=== PATIENT | female | born 1975 | race Caucasian/White ===

== ENCOUNTER 2025-09-05 07:13 | Outpatient (REF) | payer OTHER, SELFPAY ==
--- NOTE | ~2025-09-05 | MR_ITS ---
EXAMINATION: MR CERVICAL SPINE WITHOUT CONTRAST CLINICAL INFORMATION: Cervical disc disorder. COMPARISON: Correlated to x-ray dated November 23, 2018. TECHNIQUE: MRI of the cervical spine was obtained using routine sequences without contrast. FINDINGS: Paramagnetic field distortion secondary to metallic hardware from C4 to C6. Craniocervical junction is intact. Normal position of the cerebellar tonsils. No bone marrow STIR signal abnormality. Marginal osteophyte formation decreased intervertebral disc height and signal at C3-4 and C6-7 levels as well as in the upper thoracic spine. 1 mm retrolisthesis C3-4. 1 mm anterolisthesis C7-T1. Reverse curvature apex at C3-4. Cervical spinal cord signal is normal. C2-3: Broad-based disc osteophyte consummation resulting in ventral deformity of the thecal sac. No cord compression. Left neuroforamina and narrowing on a degenerative basis. C3-4: Broad-based disc osteophyte compresses formation, grade 1 retrolisthesis resulting in CSF effacement of the thecal sac central spinal canal stenosis and flattening of the spinal cord. Bilateral neuroforamina stenosis. C4-5: Postsurgical changes. No cord compression. No neuroforamina stenosis. C5-6: Postsurgical changes. No cord compression. No neuroforamina stenosis. C6-7: Broad-based disc osteophyte compresses formation resulting in ventral deformity of the thecal sac. There is bilateral neuroforamina stenosis. C7-T1: No central spinal canal stenosis or neuroforamina stenosis. No prevertebral compartment hematoma, mass or fluid collection. Flow-void signal within the main vessels is normal. Left vertebral artery is dominant. MR/MR cervical spine wo con IMPRESSION: Cervical spondylosis resulting in central spinal canal stenosis with cord compression and no cord edema and or myelopathy at C3-4 and associated neuroforamina stenosis. Central spinal canal and bilateral neuroforamina stenosis without cord compression at C6-7 on a degenerative basis. Grade 1 retrolisthesis C3-4 and grade 1 anterolisthesis C7-T1. Instability cannot be excluded. Electronically signed by: Juan Pablo Zamorano MD 09/05/2025 08:27 AM [facility] [place]
--- OUTSIDE RECORDS SUMMARY | 2025-09-05 15:03 | XMS_ITS | Data Portability ---
Author Organization [facility], Main Office Address [address] [place] [address] Care Team Providers Care Coordinator Of Health Services Name Role Phone [facility] Gynecolo gist MORENA NOLAND Neurosurgeon LAKESHIA GARCIA Orthopedic Surgeon HOLLISPARMINDER LOCKWOOD Orthopedic Surgeon BRANDON WORTHY Calciner Fe[facility] Phys. [facility] Rehab MARY SOUZA Orthopedic Surgeon [phone] ITZEL ESTRADA Urogynecologist [facility] Sleep Medicine KAYE ZIMMERMAN Primary Care Provider LAKESHIA BANKS Orthopedic Surgeon Assessment Encounter Date Assessment Date Assessment LastModified by Organization Details LastModified Time 10/30/2024 10/30/2024 The patient is a n adult over 18 years old with a BMI greater than 30 kg/m^2. She has a medical history that includes hypertension, hyperlipidemia, RALF, prediabetes first degree fhx of heart disease and OR. Despite engaging in a structured program of behavioral modification, adhering to a low-calorie diet, and exercising the best she can given her knees , She has not achieved any weight loss. After discussing medication augmentation, the patient has opted to use Zepbound, following approval from her insurance. He will continue with lifestyle modifications, including dietary restrictions and regular exercise, alongside this medication. The initial dosage will adhere to the recommended guidelines, and we plan to adjust the dose monthly. He agrees not to use any other weight loss medications or those with similar mechanisms of action concurrently. We have discussed the potential side effects of Zepbound, including nausea, constipation, aspiration, ophthalmologic changes, and the rare risk of bowel obstruction. The patient has been informed of the signs and symptoms of bowel obstruction, including severe abdominal pain, persistent nausea/vomiting, and has been advised to seek immediate medical attention if these occur. Additionally, we discussed the importance of monitoring for any sudden changes in vision and reporting these promptly. The patient has no history of thyroid cancer, gallbladder disease, or pancreatitis. He has been instructed to feel his neck for lumps and bumps regularly. Thankfully she had her gallbladder removed so this is less of a concern. We reviewed the risks, benefits, and alternatives to treatment, including continuing lifestyle management without medication or exploring other pharmacological options. The patient expressed understanding of these options and chose to proceed with Zepbound. Instructions were provided on proper injection techniques, including alternating injection sites, cleaning the area before injecting, and pinching the skin during injection. Educational materials were provided to support his understanding of the medication and its administration. The patient is required to report how he feels every two weeks via messaging, which will facilitate necessary adjustments to his prescription. A one-time prior authorization for Zepbound will be pursued, and no switch to a different GLP-1 receptor agonist or [id number] appeals will be made if denied. He is also responsible for locating a pharmacy that stocks the medication and understands the titration process, which involves increasing doses sequentially. If the required dose is unavailable, we will maintain the current dose or adjust to a lower dose until the desired dose becomes available. He will conduct weekly weight checks, and I plan to monitor his renal function once the maximum dose is reached due to potential renal side effects. Both AMILCAR and PHQ assessments have been completed. Follow-up appointments will be scheduled and the weight loss contract has been completed and signed. The patient has verbally acknowledged understanding of the risks, benefits, and alternatives to treatment and agreed to proceed with the plan. He understands his responsibilities in monitoring and reporting any adverse effects, as well as adhering to the prescribed lifestyle modifications. I, the prescribing provider, am a board-certified family medicine physician with training in obesity management. This certification is awarded by the [place] [employer], a member of the [place] [employer]. Additionally, I have completed continuing medical education (CME) in obesity management, awarded by the [place] [employer], which has equipped me with comprehensive knowledge and skills in this specialty area. I have spent 45 minutes on this encounter. The time documented represents time spent on the day of the encounter preparing for and completing the visit. Time spent performing a physical exam, obtaining history from the patient, counseling/educati ng the patient in possible diagnosis and treatment options. This time is independent of any additional procedures/diagnos tic testing/interpreta tions. [email or web address] Not available 10/30/2024 17:54:54 08/14/2025 08/14/2025 Assessment: -Cervical Radiculopathy vs. Carpal Tunnel Syndrome: Mixed presentation with neck and hand symptoms; given history of cervical surgery and positive Phalen s /Tinel s tests, multifactorial etiology likely. -Degenerative Cervical Spine Disease Possible post-surgical degenerative or foraminal changes contributing to radicular pain. -Possible Shoulder Bursitis Mild tenderness may suggest bursitis, though not the primary complaint. -Adrenal Incidentaloma: Previously noted; hormonal evaluation warranted. Plan: Diagnostics: -Cervical spine X-ray for alignment and degenerative changes. -MRI of cervical spine to assess for nerve impingement, post-surgical changes, or stenosis. -EMG/NCS to evaluate for carpal tunnel syndrome and confirm radiculopathy. -Adrenal hormonal panel for incidentaloma assessment. Medications: -Start pregabalin 75 mg at bedtime, as tolerated (given gabapentin intolerance). -Discussed side effects: sedation. Patient Education & Safety: -Reviewed red flag symptoms: new or worsening weakness, bowel/bladder dysfunction, severe pain, or fever, advised to seek emergency care if these occur. Follow-Up: -Follow-up after imaging and EMG resulted. -Patient agreed with plan and expressed understanding of risks and next steps. [email or web address] Not available 08/14/2025 16:56:21 Plan of Treatment Reminders Order Date Submit Date Provider Last Modified By Organization Details Last Modified Time Details Appointments None record ed. Lab cortis ol, am, serum 2024 025 ALEJANDRO [facility] (Centralized Electronic Ordering - All Locations), Patient Can Go To The Location Of Their Choice, [id number] 17:16:03 renin activi ty + aldost erone, plasma 2024 ALEJANDRO [facility] (Centralized Electronic Ordering - All Locations), Patient Can Go To The Location Of Their Choice, 17:16:04 acth, plasma 2024 ALEJANDRO [facility] (Centralized Electronic Ordering - All Locations), Patient Can Go To The Location Of Their Choice, 17:16:04 unlist ed lab - creatu +catec u+meta -F+vma 24u 2024 ALEJANDRO [facility] (Centralized Electronic Ordering - All Locations), Patient Can Go To The Location Of Their Choice, 08:59:15 cortis ol.andrei e panel, 24h urine - 24 hour urine collec tion 2024 ALEJANDRO [facility] (Centralized Electronic Ordering - All Locations), Patient Can Go To The Location Of Their Choice, 17:16:04 metane phrine , free, serum or plasma 2024 ALEJANDRO [facility] (Centralized Electronic Ordering - All Locations), Patient Can Go To The Location Of Their Choice, 17:16:03 dhea-s ulfate , serum 2024 ALEJANDRO [facility] (Centralized Electronic Ordering - All Locations), Patient Can Go To The Location Of Their Choice, 17:16:05 potass ium, serum or plasma 2024 ALEJANDRO [facility] (Centralized Electronic Ordering - All Locations), Patient Can Go To The Location Of Their Choice, 17:16:05 HbA1c (hemog lobin A1c), blood 2024 ALEJANDRO [facility], [address], [address], [place], [address], 09:39:20 Hepati tis C IgG Ab, qual, serum 2024 025 [email or web address] [facility], [address], [place], [address], 11:27:10 HBsAg (hepat itis B surfac e Ag), EIA, serum 2024 025 [email or web address] [facility], [address], [place], [address], 11:27:10 HIV 1 + 2, meanin gful use set 2024 025 [email or web address] [facility], [address], [place], [address], 11:27:10 trepon sean pallid um IgG + IgM Ab, QL, IA, serum 2024 025 [email or web address] [facility] (Centralized Electronic Ordering - All Locations), Patient Can Go To The Location Of Their Choice, [facility] 11:27:10 CT + NG RNA, PCR, unspec ified specim en 2024 025 [email or web address] [facility] (Centralized Electronic Ordering - All Locations), Patient Can Go To The Location Of Their Choice, [facility] 11:27:10 hepati tis B core IgM Ab, qual, serum or plasma 2024 025 [email or web address] [facility] (Centralized Electronic Ordering - All Locations), Patient Can Go To The Location Of Their Choice, [id number] 11:27:11 lipid panel, serum 2024 025 [email or web address] [facility], [address], [address], [place], [address], 11:27:10 CBC w/ auto diff 2024 025 ALEJANDRO [facility], [address], [address], [place], [address], 09:39:19 TSH, ultra- sensit kamila, serum 2024 025 ALEJANDRO [facility] (Centralized Electronic Ordering - All Locations), Patient Can Go To The Location Of Their Choice, 09:39:19 CMP, serum or plasma 2024 025 ALEJANDRO [facility] (Centralized Electronic Ordering - All Locations), Patient Can Go To The Location Of Their Choice, 09:39:18 magnes ium, serum or plasma 2024 025 ALEJANDRO [facility], [address], [address], [place], [address], 09:39:18 urinal ysis, dipsti ck 2024 025 ALEJANDRO In-Office Order, Internal Use Only DO Not Attach Compendium DO Not Attach Compendium, Do Not Delete/merge, [id number] 13:56:27 unlist ed lab - UA/M+u rine cultur e, comp 2024 025 ALEJANDRO [facility] (Centralized Electronic Ordering - All Locations), Patient Can Go To The Location Of Their Choice, 15:04:04 Hepati tis C IgG Ab, qual, serum 2024 025 [email or web address] [facility], [address], [place], [address], 09:48:07 HBsAg (hepat itis B surfac e Ag), EIA, serum 2024 025 [email or web address] [facility], [address], [place], [address], 5 09:48:07 HIV 1 + 2, meanin gful use set 2024 025 [email or web address] [facility], [address], [place], [address], 5 09:48:07 trepon sean pallid um IgG + IgM Ab, QL, IA, serum 2024 025 lmRORE MEDIA [facility] (Centralized Electronic Ordering - All Locations), Patient Can Go To The Location Of Their Choice, [facility] 5 12:45:07 CT + NG RNA, PCR, unspec ified specim en 2024 025 lmRORE MEDIA [facility] (Centralized Electronic Ordering - All Locations), Patient Can Go To The Location Of Their Choice, [facility] 5 12:45:07 hepati tis B core IgM Ab, qual, serum or plasma 2024 025 lmRORE MEDIA [facility] (Centralized Electronic Ordering - All Locations), Patient Can Go To The Location Of Their Choice, [facility] 5 12:45:07 Referral weight manage ment referr sherin diaz does not have histor y of pancre atitis or medull christie thyroi d diseas e. 2024 025 [facility], [address], [facility] [address], [place], [address], 13:43:30 Procedures None record ed. Surgeries None record ed. Imaging electr omyogr am + nerve conduc tion study 2024 [email or web address] Not available 08:30:22 XR, cervic al spine 2024 [facility], [address] [place], [address], 12:59:22 MRI, cervic al spine, w/o contra st 2024 [facility] (Imaging), [address], [place], [address], 5 08:32:03 MAMMO, screen ing, bilate ral - Perfor m Diagno stic Mammog hui and Breast Ultras ound if needed / Perfor m Ultras ound Guided Aspira tion and/or Breast Biopsy if warran jaime 2024 [email or web address] Not available 09:58:44 Medication Orders pregab sebastian 75 mg capsul e 2024 [facility], [address] [place] [address], [place], [address], 16:57:37 tramad ol 50 mg tablet 2024 [facility], [address] [place] [address], [place], [address], 09:39:16 triamc inolon e aceton dk 0.1 % topica l cream 2024 [facility], [address] [place] [address], [place], [address], 15:26:29 sulfam ethoxa zole 800 mg-tri methop rim 160 mg tablet 2024 025 [facility], [address] [place] [address], [place], [address], 05:01:55 Percoc et 2.5 mg-325 mg tablet 2024 025 [email or web address] [facility], [address] [place] [address], [place], [address], 09:14:19 Zepbou nd 2.5 mg/0.5 mL subcut aneous pen inject or 2024 025 [facility], [address] [place] [address], [place], [address], 09:15:36 Alcoho l Prep Pads 2024 025 [facility], [address] [place] [address], [place], [address], 15:25:16 Patient TargetsNo targets recorded. Patient Instructions Encounter Date Encounter Id Patient Instructions Last Modified By Organization Details Last Modified Time 10/30/2024 [id number] knee arthritis: care instructions ravinder Not available 10/30/2024 15:25:14 Starting a Weight-Loss Plan: Care Instructions [email or web address] Not available 10/30/2024 15:25:14 Nutrition Referral and Weight Management Follow-up Information [email or web address] Not available 10/30/2024 15:25:14 When You Want to Lose Weight: Care Instructions ravinder Not available 10/30/2024 15:25:14 07/02/2025 [id number] Well Visit, Ages 18 to 65: Care Instructions ravinder Not available 07/02/2025 09:39:13 Starting a Weight-Loss Plan: Care Instructions ravinder Not available 07/02/2025 09:39:13 08/14/2025 [id number] neck: exercises [email or web address] Not available 08/14/2025 15:51:53 healthy upper back: exercises [email or web address] Not available 08/14/2025 15:51:53 Reason for Referral Weight Management Referral f or Body mass index 40+ - severely obese Patient does not have history of pancreatitis or medullary thyroid disease. Referring Physician: Kaye Zimmerman, Family Medicine, Encounter Date: 07/02/2025 Results Created Date Observation Date Name Description Value Unit Range Abnormal Flag Note LastModifiedBy Organization Detail LastModifiedTime 03/20/2003/21/2025 UA/M W/RFL X JERADROU RECECI specific gravity 1.024 1.005- 1.030 normal Not Available [facility] ([facility]) [address] [place], [address], 03/23/2025 12:06:01 03/20/2003/21/2025 UA/M W/RFL X CULTU RECECI NE pH 6.5 5.0-7. 5 normal Not Available [facility] ([facility]) [address] [place], [address], 03/23/2025 12:06:01 03/20/20 25 03/21/2025 UA/M W/RFL X CULTCECI ARRINGTON urine-color Yellow yellow Not Available [facility] ([facility]) [address] [place], [address], 03/23/2025 12:06:01 03/20/20 25 03/21/2025 UA/M W/RFL X CECI COLLADO appearance Turbid clear abnormal Not Available [facility] ([facility]) [address] [place], [address], 03/23/2025 12:06:01 03/20/20 25 03/21/2025 UA/M W/RFL X CECI COLALDO WBC esterase 2+ negati ve abnormal Not Available [facility] ([facility]) [address] [place], [address], 03/23/2025 12:06:01 03/20/20 25 03/21/2025 UA/M W/RFL X CECI COLLADO protein 3+ negati ve/tra ce abnormal Not Available [facility] ([facility]) [address] [place], [address], 03/23/2025 12:06:01 03/20/20 25 03/21/2025 UA/M W/RFL X CECI COLLADO glucose Negati ve negati ve Not Available [facility] ([facility]) [address] [place], [address], 03/23/2025 12:06:01 03/20/20 25 03/21/2025 UA/M W/RFL X CECI COLLADO ketones Trace negati ve abnormal Not Available [facility] ([facility]) [address] [place], [address], 03/23/2025 12:06:01 03/20/20 25 03/21/2025 UA/M W/RFL X CULTU RE, ROUTI NE occult blood Trace negati ve abnormal Not Available [facility] ([facility]) [address] [facility], [place], [address], 03/23/2025 12:06:01 03/20/20 25 03/21/2025 UA/M W/RFL X CULTU RE, ROUTI NE bilirubin Positi ve negati ve abnormal Posit kamila resul ts have been confi rmed. Not Available [facility] ([facility]) [address] [facility], [place], [address], 03/23/2025 12:06:01 03/20/20 25 03/21/2025 UA/M W/RFL X CULTU RE, ROUTI NE urobilinogen ,semi-qn 1.0 mg/dL 0.2-1. 0 normal Not Available [facility] ([facility]) [address] [place], [address], 03/23/2025 12:06:01 03/20/20 25 03/21/2025 UA/M W/RFL X CULTU RE, ROUTI NE nitrite, urine Positi ve negati ve abnormal Not Available [facility] ([facility]) [address] [facility], [place], [address], 03/23/2025 12:06:01 03/20/20 25 03/21/2025 UA/M W/RFL X CULTU RE, ROUTI NE microscopic examination See below: Micro scopi c was indic ated and was perfo rmed. Not Available [facility] ([facility]) [address] [place], [address], 03/23/2025 12:06:01 03/20/20 25 03/21/2025 UA/M W/RFL X CULTU RE, ROUTI NE microscopic examination [employer]UST[employer]S COMPLIANCE MANAGER Not Available [facility]) [address] [place], [address], 03/23/2025 12:06:01 03/20/20 25 03/21/2025 UA/M W/RFL X CULTU RE, ROUTI NE urinalysis reflex Commen t This speci men has refle xed to a Urine Cultu re. Not Available [facility] ([facility]) [address] [facility], [place], [address], 03/23/2025 12:06:01 03/20/20 25 03/22/2025 UA/M W/RFL X CULTU RE, ROUTI NE WBC >30 /hpf 0 - 5 abnormal Not Available [facility] ([facility]) [address] [facility], [place], [address], 03/23/2025 12:06:01 03/20/20 25 03/22/2025 UA/M W/RFL X CULTU RE, ROUTI NE RBC 3-10 /hpf 0 - 2 abnormal Not Available [facility] ([facility]) [address] [facility], [place], [address], 03/23/2025 12:06:01 03/20/20 25 03/22/2025 UA/M W/RFL X CULTU RE, ROUTI NE epithelial cells (non renal) 0-10 /hpf 0 - 10 Not Available [facility] ([facility]) [address] [facility], [place], [address], 03/23/2025 12:06:01 03/20/20 25 03/22/2025 UA/M W/RFL X CULTU RE, ROUTI NE epithelial cells (renal) [employer] COMPLIANCE MANAGER Not Available [facility] ([facility]) [address] [facility], [place], [address], 03/23/2025 12:06:01 03/20/20 25 03/22/2025 UA/M W/RFL X CULTU RE, ROUTI NE casts None seen /lpf none seen Not Available [facility] ([facility]) [address] [facility], [place], [address], 03/23/2025 12:06:01 03/20/20 25 03/22/2025 UA/M W/RFL X CULTU RE, ROUTI NE cast type [employer]UST[employer]S COMPLIANCE MANAGER Not Available [facility] ([facility]) [address] [facility], [place], [address], 03/23/2025 12:06:01 03/20/20 25 03/22/2025 UA/M W/RFL X CULTU RE, ROUTI NE crystals CUST[employer]S COMPLIANCE MANAGER Not Available [facility] ([facility]) [address] [facility], [place], [address], 03/23/2025 12:06:01 03/20/20 25 03/22/2025 UA/M W/RFL X CULTU RE, ROUTI NE crystal type [employer]UST[employer]S COMPLIANCE MANAGER Not Available [facility] ([facility]) [address] [facility], [place], [address], 03/23/2025 12:06:01 03/20/20 25 03/22/2025 UA/M W/RFL X CULTU RE, ROUTI NE mucus threads [employer]UST[employer]S COMPLIANCE MANAGER Not Available [facility] ([facility]) [address] [facility], [place], [address], 03/23/2025 12:06:01 03/20/20 25 03/22/2025 UA/M W/RFL X CULTU RE, ROUTI NE bacteria Many none seen/f ew abnormal Not Available [facility] ([facility]) [address] [facility], [place], [address], 03/23/2025 12:06:01 03/20/20 25 03/22/2025 UA/M W/RFL X CULTU RE, ROUTI NE yeast [employer] COMPLIANCE MANAGER Not Available [facility] ([facility]) [address] [place], [address], 03/23/2025 12:06:01 03/20/20 25 03/22/2025 UA/M W/RFL X CULTU RE, ROUTI NE trichomonas [employer]UST[employer] COMPLIANCE MANAGER Not Available [facility] ([facility]) [address] [facility], [place], [address], 03/23/2025 12:06:01 03/20/20 25 03/22/2025 UA/M W/RFL X CULTU RE, ROUTI NE comment [employer]UST[employer]S COMPLIANCE MANAGER Not Available [facility] ([facility]) [address] [facility], [place], [address], 03/23/2025 12:06:01 03/20/20 25 03/23/2025 UA/M W/RFL X CULTU RE, ROUTI NE urine culture, routine Final report abnormal Not Available [facility] ([facility]) [address] [facility], [place], [address], 03/23/2025 12:06:01 03/20/20 25 03/23/2025 UA/M W/RFL X CULTU RE, ROUTI NE result 1 Proteu s mirabi lis abnormal Cefaz leilani with an SAAD <=16 predi cts susce ptibi lity to the oral agent s cefac celena, cefdi talha, cefpo doxim e, cefpr ozil, cefur oxime , cepha lexin , and lorac arbef when used for thera py of uncom plica jaime urina ry tract infec tions due to E. coli, Klebs iella pneum oniae , and Prote us mirab ilis. Great er than 100,0 00 colon y formi ng units per mL Not Available [facility] ([facility]) [address] [facility], [place], [address], 03/23/2025 12:06:01 03/20/20 25 03/23/2025 UA/M W/RFL X CULTU RE, ROUTI NE antimicrobia l susceptibili ty Commen t S = Susce ptibl e; I = Inter media te; R = Resis tant P = Posit kamila; N = Negat kamila MICS are expre ssed in micro grams per mL Antib iotic RSLT# 1 RSLT# 2 RSLT# 3 RSLT# 4 Amoxi cilli n/Cla vulan ic Acid S Ampic illin S Cefaz leilani S Cefep ed S Cefox itin S Cefpo doxim e S Ceftr iaxon e S Cipro floxa joyce S Ertap enem S Genta micin S Levof loxac in S Merop enem S Nitro furan toin R Piper acill in/Ta zobac [place] S Tetra cycli ne R Tobra mycin S Trime thopr im/Guthrie lfa S Not Available [facility] ([facility]) [address] [facility], [place], [address], 03/23/2025 12:06:01 03/20/20 25 03/20/2025 urina lysis , dipst ick Leukocytes Modera te Not Available In-Office Order Internal Use Only DO Not Attach Compendium DO Not Attach Compendium, Do Not Delete/merge, 03/20/2025 08:57:23 03/20/2003/20/2025 urina lysis , dipst ick Nitritie negati ve Not Available In-Office Order Internal Use Only DO Not Attach Compendium DO Not Attach Compendium, Do Not Delete/merge, 03/20/2025 08:57:23 03/20/2003/20/2025 urina lysis , dipst ick Urobilinogen .2 Not Available In-Of fice Order Internal Use Only DO Not Attach Compendium DO Not Attach Compendium, Do Not Delete/merge, 03/20/2025 08:57:23 03/20/2003/20/2025 urina lysis , dipst ick Protein 100 Not Available In-Office Order Internal Use Only DO Not Attach Compendium DO Not Attach Compendium, Do Not Delete/merge, 03/20/2025 08:57:23 03/20/2003/20/2025 urina lysis , dipst ick pH 6.0 Not Available In-Office Order Internal Use Only DO Not Attach Compendium DO Not Attach Compendium, Do Not Delete/merge, 03/20/2025 08:57:23 03/20/2003/20/2025 urina lysis , dipst ick Blood Small Not Available In-Office Order Internal Use Only DO Not Attach Compendium DO Not Attach Compendium, Do Not Delete/merge, [facility] 03/20/2025 08:57:23 03/20/2003/20/2025 urina lysis , dipst ick Specific Cook Sta 1.025 Not Available In-Off ice Order Internal Use Only DO Not Attach Compendium DO Not Attach Compendium, Do Not Delete/merge, [facility] 03/20/2025 08:57:23 03/20/2003/20/2025 urina lysis , dipst ick Ketone Negati ve Not Available In-Office Order Internal Use Only DO Not Attach Compendium DO Not Attach Compendium, Do Not Delete/merge, [facility] 03/20/2025 08:57:23 03/20/2003/20/2025 urina lysis , dipst ick Bilirubin Small Not Available In-Offic e Order Internal Use Only DO Not Attach Compendium DO Not Attach Compendium, Do Not Delete/merge, [facility] 03/20/2025 08:57:23 03/20/2003/20/2025 urina lysis , dipst ick Glucose Negati ve Not Available In-Office Order Internal Use Only DO Not Attach Compendium DO Not Attach Compendium, Do Not Delete/merge, [facility] 03/20/2025 08:57:23 03/20/2003/20/2025 urina lysis , dipst ick Appearance Cloudy Not Available In-Offi ce Order Internal Use Only DO Not Attach Compendium DO Not Attach Compendium, Do Not Delete/merge, [facility] 03/20/2025 08:57:23 03/20/2003/20/2025 urina lysis , dipst ick Color Dark Yellow Not Available In-Office Order Internal Use Only DO Not Attach Compendium DO Not Attach Compendium, Do Not Delete/merge, [id number] 03/20/2025 08:57:23 04/08/2004/08/2025 CBC w/ auto diff WBC 12.00 Not Available [facility] (Outpatient) [address], [place], [address], 04/08/2025 18:09:19 04/08/20 25 04/08/2025 CBC w/ auto diff RBC 4.03 Not Available [facility] (Outpatient) [address] [place], [address], 04/08/2025 18:09:19 04/08/20 25 04/08/2025 CBC w/ auto diff HGB 11.5 Not Available [facility] (Outpatient) [address] [place], [address], 04/08/2025 18:09:19 04/08/20 25 04/08/2025 CBC w/ auto diff HCT 37.1 Not Available [facility] (Outpatient) [address] [place], [address], 04/08/2025 18:09:19 04/08/20 25 04/08/2025 CBC w/ auto diff plt 317 Not Available [facility] (Outpatient) [address] [place], [address], 04/08/2025 18:09:19 08/15/20 25 08/14/2025 XR, cervi blas spine No observ ation record ed. [facility] [address] [facility], [place], [address], 08/15/2025 13:04:50 08/15/20 25 08/14/2025 XR, cervi blas spine Cervic al Spine 3 Views or Less Reason : neck pain COMPAR JEREL: Cervic al spine x-rays , 2017. FINDIN GS: Suppor tive change s are seen from ACDF spanni ng C4-C6 utiliz ing an anteri or plate and screws . Solid fusion is seen across the disc spaces . There straig htenin g of the normal lordos is with minima l mary listhe sis of C7 on T1. Verteb ral body height s are preser kulwant. There is severe disc space narrow ing at C3-4 and C6-7 with anteri or osteop hyte and mild curb setter helper ior disc ridgin g. Mild disc space narrow ing is also seen at C2-3. Spinou s proces ses are intact . There is multil evel facet spurri ng, most pronou nced at C3-4 on the left. Normal prever tebral soft tissue s and clear lung apices . IMPRES LEO: Postop erativ e and degene rative change s as descri bed. WSN: [id number] Orderi ng Physic carole: Nancie Zimmerman Dictat ed By: Jewels Hayes MD Dictat ed Date/T ed: 12:53 p Review ed By: Jewels Hayes MD Signed By: Jewels Hayes MD Signed Date/T ed: 12:53 pm Transc ribed By: CRISTINE Transc ribed Date/T ed: 12:51 pm Patien t Class: Outpat ient lmulerovalle [facility] (Outpt Imaging) [address] [place], [address], 08/30/2025 11:31:58 09/05/2009/05/2025 MRI, cervi blas spine , w/o contr ast No observ ation record ed. [facility] (Medical Records) [address] [place], [address], 09/05/2025 12:58:15 Result Notes Documentation Provider Name and Address Organization Details Recorded Time Xr, Cervical Spine : Cervical Spine 3 Views or Less Reason: neck pain COMPARISON: Cervical spine x-rays, 09/12/2018. FINDINGS: Supportive changes are seen from ACDF spanning C4-C6 utilizing an anterior plate and screws. Solid fusion is seen across the disc spaces. There straightening of the normal lordosis with minimal anterolisthesis of C7 on T1. Vertebral body heights are preserved. There is severe disc space narrowing at C3-4 and C6-7 with anterior osteophyte and mild posterior disc ridging. Mild disc space narrowing is also seen at C2-3. Spinous processes are intact. There is multilevel facet spurring, most pronounced at C3-4 on the left. Normal prevertebral soft tissues and clear lung apices. IMPRESSION: Postoperative and degenerative changes as described. WSN: [id number] Ordering Physician: Kaye Zimmerman Dictated By: Jewels Cordova MD Dictated Date/Time: 08/15/25 12:53 p Reviewed By: Jewels Cordova MD Signed By: Jewels Cordova MD Signed Date/Time: 08/15/25 12:53 pm Transcribed By: CRISTINE Transcribed Date/Time: 08/15/25 12:51 pm Patient Class: Outpatient PENNY Feliz [facility] 08/30/2025 11:31:58 Problems Name Problem SNOMED Code Status Onset Date Resolution Date Notes Provider Name and Address Organization Details Recorded Time Otitis media 31565780 Completed 09/15/2016 PENNY Marley [facility] 6 14:29:43 Acute sinusiti s 31909312 Completed 09/15/2016 PENNY Marley [facility] 6 14:29:23 Candidia sis of vagina 48953328 Completed 08/04/2019 PENNY Marley [facility] 9 10:02:44 Cholelit hiasis with obstruct ion 72611080 Active Not Available [facility] 3 01:31:44 Elevated blood-pr essure reading without diagnosi s of hyperten leo 502284183 Completed 08/04/2019 PENNY Marley [facility] 9 10:02:55 Alcoholi sm 4631164 Active Not Available [facility] 3 01:31:44 Essentia l hyperten leo 81958368 Active Not Available [facility] 3 01:31:44 Pain in lower limb 46240901 Completed 08/10/2017 PENNY Marley [facility] 7 14:23:40 Multiple skin tags 576661926 Active Not Available [facility] 3 01:31:44 Major depressi ve disorder 818894827 Completed 08/09/2019 Morena pearson, [facility] 2 11:34:15 Fatigue 53469408 Completed 09/15/2016 PENNY Marley, [facility] 6 14:29:51 Mixed urinary incontin ence 510657588 Active Not Available [facility] 3 01:31:44 Nocturia 753099159 Completed 06/30/2024 Kaye Zimmerman MD [address] [facility] [address], [facility] [place], [address] , [facility] 4 15:50:07 Increase d frequenc y of urinatio n 305203650 Active Followin g PRESSURE SUPERVISOR Not Available [facility] 3 01:31:44 Prediabe mariela 271995392 Active Not Available [facility] 3 01:31:44 Administ ration of bacteria l and viral vaccine Completed 200705/01/2014 RECORDED 08/01/20 08 1:12PM BY AFITH GAMEZ, OFFICE VISIT Not Available [facility] 4 15:20:23 Administ ration of bacteria l and viral vaccine Completed 200705/28/2014 RECORDED 08/01/20 08 1:12PM BY FAITH GAMEZ, OFFICE VISIT Not Available [facility] 4 05:45:13 Vaginiti s and vulvovag initis Completed 200805/01/2014 RECORDED 12/19/19 09 2:39PM BY JAMES VARELA ON/ADDEN DUM Not Available [facility] 4 15:20:23 Vaginiti s and vulvovag initis Completed 200805/28/2014 RECORDED 12/19/19 09 2:39PM BY JAMES VARELA ON/ADDEN DUM Not Available [facility] 4 05:45:13 Gastroes ophageal reflux disease 040494257 Completed 200905/01/2014 RECORDED 01/25/20 10 2:16PM BY ANIRUDH GUEVARA MA, ANNOTATI ON/ADDEN DUM Kaye Zimmerman MD [address] [facility] [address], [place], [address] , [facility] 3 14:23:04 Irritabl e bowel syndrome 56076041 Completed 200905/01/2014 RECORDED 01/25/20 10 2:16PM BY ANIRUDH GUEVARA MA, ANNOTATI ON/ADDEN DUM PENNY Marley, [facility] 6 14:29:20 Gastroes ophageal reflux disease 661632345 Completed 200905/28/2014 RECORDED 01/25/20 10 2:16PM BY ANIRUDH GUEVARA MA, ANNOTATI ON/ADDEN DUM Kaye Zimmerman MD [address] [facility] [address], [place], [address] , [facility] 3 14:23:04 Amenorrh ea 95439837 Completed 201105/01/2014 RECORDED 10/20/19 12 2:50PM BY ANIRUDH GUEVARA MA, ANNOTATI ON/ADDEN DUM Not Available [facility] 4 15:20:21 Amenorrh ea 95483701 Completed 201105/28/2014 RECORDED 10/20/19 12 2:50PM BY ANIRUDH GUEVARA MA, ANNOTBROOKS ON/ADDEN DUM Not Available [facility] 4 05:45:12 Acute sinusiti s 35818038 Completed 201105/01/2014 RECORDED 05/18/20 12 2:17PM BY ANIRUDH GUEVARA MA, ANNOTBROOKS ON/ADDEN DUM PENNY Marley, [facility] 6 14:29:23 Screenin g for malignan t neoplasm of cervix Completed 201105/01/2014 RECORDED 05/18/20 12 2:17PM BY ANIRUDH GUEVARA MA, ANNOTATI ON/ADDEN DUM Not Available [facility] 4 15:20:21 Neck pain 46027062 Completed 201105/01/2014 RECORDED 05/18/20 12 2:17PM BY ANIRUDH GUEVARA MA, ANNOTATI ON/ADDEN DUM Not Available [facility] 4 15:20:21 Cough 92357380 Completed 201105/01/2014 RECORDED 05/18/20 12 2:17PM BY ANIRUDH GUEVARA MA, ANNOTATI ON/ADDEN DUM Not Available [facility] 4 15:20:21 Dysuria 70886578 Completed 201105/01/2014 RECORDED 05/18/20 12 2:17PM BY ANIRUDH GUEVARA MA, ANNOTATI ON/ADDEN DUM Not Available [facility] 4 15:20:22 Well child 553605228 Completed 201105/01/2014 RECORDED 05/18/20 12 2:17PM BY ANIRUDH GUEVARA MA, ANNOTATI ON/ADDEN DUM Not Available [facility] 4 15:20:22 Low back pain 664031112 Completed 201105/01/2014 RECORDED 05/18/20 12 2:17PM BY ANIRUDH GUEVARA MA, ANNOTATI ON/ADDEN DUM Not Available [facility] 4 15:20:22 Hypertro phic conditio n of skin 56915448 Completed 201105/01/2014 RECORDED 05/18/20 12 2:17PM BY ANIRUDH GUEVARA MA, ANNOTATI ON/ADDEN DUM Not Available [facility] 4 15:20:23 Wheezing 89026258 Completed 201105/01/2014 RECORDED 05/18/20 12 2:17PM BY ANIRUDH GUEVARA MA, ANNOTATI ON/ADDEN DUM Not Available [facility] 4 15:20:23 Candidal vulvovag initis 46792636 Completed 201105/01/2014 RECORDED 05/18/20 12 2:17PM BY ANIRUDH GUEVARA MA, ANNOTATI ON/ADDEN DUM Not Available [facility] 4 15:20:24 Acute sinusiti s 09145311 Completed 201105/28/2014 RECORDED 05/18/20 12 2:17PM BY ANIRUDH GUEVARA MA, ANNOTATI ON/ADDEN DUM PENNY Marley [place] - [facility] 6 14:29:23 Screenin g for malignan t neoplasm of cervix Completed 201105/28/2014 RECORDED 05/18/20 12 2:17PM BY ANIRUDH GUEVARA MA, ANNOTATI ON/ADDEN DUM Not Available [facility] 4 05:45:13 Neck pain 57140170 Completed 201105/28/2014 RECORDED 05/18/20 12 2:17PM BY ANIRUDH GUEVARA MA, ANNOTATI ON/ADDEN DUM Not Available [facility] 4 05:45:13 Cough 46356198 Completed 201105/28/2014 RECORDED 05/18/20 12 2:17PM BY ANIRUDH GUEVARA MA, ANNOTATI ON/ADDEN DUM Not Available [facility] 4 05:45:13 Dysuria 00786552 Completed 201105/28/2014 RECORDED 05/18/20 12 2:17PM BY ANIRUDH GUEVARA MA, ANNOTATI ON/ADDEN DUM Not Available [facility] 4 05:45:13 Well child 866637333 Completed 201105/28/2014 RECORDED 05/18/20 12 2:17PM BY ANIRUDH GUEVARA MA, ANNOTATI ON/ADDEN DUM Not Available [facility] 4 05:45:13 Low back pain 573343180 Completed 201105/28/2014 RECORDED 05/18/20 12 2:17PM BY ANIRUDH GUEVARA MA, ANNOTBROOKS ON/ADDEN DUM Not Available [facility] 4 05:45:13 Hypertro phic conditio n of skin 65406001 Completed 201105/28/2014 RECORDED 05/18/20 12 2:17PM BY ANIRUDH GUEVARA MA, ANNOTATI ON/ADDEN DUM Not Available [facility] 4 05:45:13 Wheezing 21323242 Completed 201105/28/2014 RECORDED 05/18/20 12 2:17PM BY ANIRUDH GUEVARA MA, ANNOTBROOKS ON/ADDEN DUM Not Available [facility] 4 05:45:13 Candidal vulvovag initis 35646040 Completed 201105/28/2014 RECORDED 05/18/20 12 2:17PM BY ANIRUDH GUEVARA MA, ANNOTATI ON/ADDEN DUM Not Available [facility] 4 05:45:13 Tobacco dependen ce syndrome 64072516 Completed 201106/30/2024 Kaye Zimmerman MD [address], [place], [address] , [facility] 4 15:50:25 Irritabl e bowel syndrome 96863589 Active 2011 Not Available [facility] 3 01:31:43 Morbid obesity 924063075 Active 2011 Not Available [facility] 3 01:31:44 Gastroes ophageal reflux disease 860548029 Completed 201103/08/2023 Kaye Zimmerman MD [address], [place], [address] , [facility] 3 14:23:04 Pityrias is versicol or 45682512 Completed 201105/01/2014 RECORDED 09/05/20 12 10:02AM BY ANIRUDH GUEVARA MA, ANNOTATI ON/ADDEN DUM Not Available [facility] 4 15:20:23 Increase d frequenc y of urinatio n 567100676 Completed 201105/01/2014 RECORDED 09/05/20 12 10:02AM BY ANIRUDH GUEVARA MA, ANNOTATI ON/ADDEN DUM Kaye Zimmerman MD [address] [facility] [address], [place], [address] , [facility] 3 14:23:17 Pityrias is versicol or 24884135 Completed 201105/28/2014 RECORDED 09/05/20 12 10:02AM BY ANIRUDH GUEVARA MA, ANNOTATI ON/ADDEN DUM Not Available [facility] 4 05:45:13 Increase d frequenc y of urinatio n 982225361 Completed 201105/28/2014 RECORDED 09/05/20 12 10:02AM BY ANIRUDH GUEVARA MA, ANNOTATI ON/ADDEN DUM Kaye Zimmerman MD [address] [facility] [address], [place], [address] , [facility] 3 14:23:17 Influenz a vaccine needed 16186937075 06 Completed 201205/01/2014 RECORDED 06/20/20 13 1:31PM BY JAQUELINE LINO MA, ANNOTATI ON/ADDEN DUM Not Available [facility] 4 15:20:22 Dermatop hytosis of the body Completed 201205/01/2014 RECORDED 06/20/20 13 1:31PM BY JAQUELINE LINO MA, ANNOTATI ON/ADDEN DUM Not Available [facility] 4 15:20:23 Influenz a vaccine needed 47875855282 06 Completed 201205/28/2014 RECORDED 06/20/20 13 1:31PM BY JAQUELINE LINO MA, ANNOTATI ON/ADDEN DUM Not Available [facility] 4 05:45:13 Dermatop hytosis of the body Completed 201205/28/2014 RECORDED 06/20/20 13 1:31PM BY JAQUELINE LINO MA, ANNOTATI ON/ADDEN DUM Not Available [facility] 4 05:45:13 Eruption 575045307 Completed 201205/01/2014 IMPRESSI ON: WITH ONGOING INGUINAL RASH, LOOKS MOST CONSISTE NT WITH EITHER A TINEA OR SENSITIV ITY/DERM ATITIS, PERHAPS COMBINAT ION. CONSIDER ERYTHRAS MA IF NO IMPROVEM ENT. DISCUSSE D CHANGING CREAMS, REC LOOSE FITTED COTTON UNDERWEA R AND CLOTHING , HYPOALLX SOAPS, DETERGEN TS AND FABRIC SOFTENER S. NEEDS TO D/C SHAVING FOR TIME BEING. TRY TO KEEP AREA CLEAN AND DRY. CALL IF LITTLE IMPROVEM ENT AFTER 2 WEEKS OR SOONER PRN.; RECORDED 09/05/20 13 8:13AM BY JAMES ROTHMAN ON/ADDEN DUM Not Available [facility] 4 15:20:23 Eruption [id number] Completed 201205/28/2014 IMPRESSI ON: WITH ONGOING INGUINAL RASH, LOOKS MOST CONSISTE NT WITH EITHER A TINEA OR SENSITIV ITY/DERM ATITIS, PERHAPS COMBINAT ION. CONSIDER ERYTHRAS MA IF NO IMPROVEM ENT. DISCUSSE D CHANGING CREAMS, REC LOOSE FITTED COTTON UNDERWEA R AND CLOTHING , HYPOALLX SOAPS, DETERGEN TS AND FABRIC SOFTENER S. NEEDS TO D/C SHAVING FOR TIME BEING. TRY TO KEEP AREA CLEAN AND DRY. CALL IF LITTLE IMPROVEM ENT AFTER 2 WEEKS OR SOONER PRN.; RECORDED 09/05/20 13 8:13AM BY JAMES ROTHMAN ON/ADDEN DUM Not Available [facility] 4 05:45:13 Contusio n 450792611 Completed 201305/01/2014 RECORDED 12/06/19 14 8:28AM BY JONATHAN MILLER MA, ANNOTATI ON/ADDEN DUM Not Available [facility] 4 15:20:21 Benign neoplasm of colon 95862929 Completed 201305/01/2014 STORY: LAST POLYP REMOVED 11/2008. BRANDON Mcfadden.; RECORDED 12/06/19 14 8:28AM BY JONATHAN MILLER MA, ANNOTATI ON/ADDEN DUM Not Available [facility] 4 15:20:21 Malaise and fatigue 759164068 Completed 201305/01/2014 RECORDED 12/06/19 14 8:28AM BY JONATHAN MILLER MA, ANNOTATI ON/ADDEN DUM Not Available [facility] 4 15:20:22 Immuniza tion refused Completed 201305/01/2014 RECORDED 12/06/19 14 8:28AM BY JONATHAN MILLER MA, ANNOTATI ON/ADDEN DUM Not Available [facility] 4 15:20:23 Contusio n [id number] Completed 201305/28/2014 RECORDED 12/06/19 14 8:28AM BY JONATHAN MILLER MA, ANNOTATI ON/ADDEN DUM Not Available [facility] 4 05:45:13 Benign neoplasm of colon 44820860 Completed 201305/28/2014 STORY: LAST POLYP REMOVED 11/2008. BRANDON Velasquez; RECORDED 12/06/19 14 8:28AM BY JONATHAN MILLER MA, ANNOTATI ON/ADDEN DUM Not Available [facility] 4 05:45:13 Malaise and fatigue 345692666 Completed 201305/28/2014 RECORDED 12/06/19 14 8:28AM BY JONATHAN MILLER MA, ANNOTATI ON/ADDEN DUM Not Available [facility] 4 05:45:13 Adult health examinat ion Completed 201305/01/2014 RECORDED 03/07/20 14 9:29AM BY ANIRUDH GUEVARA MA, JAMES ON/ADDEN DUM Not Available [facility] 4 15:20:21 Bronchit is 21468677 Completed 201305/01/2014 IMPRESSI ON: ENCOURAG E REST AND HYDRATIO N/MUCOLY TICS. RTC IF PERSISTE NT OR WORSENIN G SYMPTOMS .; RECORDED 03/07/20 14 9:30AM BY ANIRUDH GUEVARA MA, ANNOTATI ON/ADDEN DUM Not Available [facility] 4 15:20:21 Tobacco dependen ce syndrome 49771416 Completed 201305/01/2014 RECORDED 03/07/20 14 9:29AM BY ANIRUDH GUEVARA MA, ANNOTATI ON/ADDEN DUM Kaye Zimmerman MD [address], [place], [address] , [facility] 4 15:50:25 Hyperlip idemia 57686348 Active 2013 Not Available [facility] 3 01:31:44 Iron deficien cy anemia 20043638 Completed 201303/08/2023 Kaye Zimmerman MD [address] [facility] [address], [place], [address] , [facility] 3 14:23:22 Irregula r periods 18499384 Completed 201303/08/2023 Kaye Zimmerman MD [address] [facility] [address], [place], [address] , [facility] 3 14:23:30 Shoulder joint pain 346826403 Completed 201303/08/2023 Kaye Zimmerman MD [address] [facility] [address], [place], [address] , [facility] 3 14:24:21 Obesity 462657101 Completed 201303/08/2023 Kaye Zimmerman MD [address] [facility] [address], [place], [address] , [facility] 3 14:24:02 Gastro-e sophagea l reflux disease with esophagi tis 981570113 Active 2013 Not Available [facility] 3 01:31:44 Cramp in lower leg associat ed with rest 951574308 Completed 201308/04/2019 Anirudh stoll [place] null, [facility] 9 10:02:49 Screenin g for malignan t neoplasm of colon Completed 201305/01/2014 RECORDED 03/07/20 14 9:30AM BY ANIRUDH GUEVARA MA, ANNOTATI ON/ADDEN DUM Not Available [facility] 4 15:20:23 Adult health examinat ion Completed 201305/28/2014 RECORDED 03/07/20 14 9:29AM BY ANIRUDH GUEVARA MA, ANNOTATI ON/ADDEN DUM Not Available [facility] 4 05:45:12 Bronchit is 88327877 Completed 201305/28/2014 IMPRESSI ON: ENCOURAG E REST AND HYDRATIO N/MUCOLY TICS. RTC IF PERSISTE NT OR WORSENIN G SYMPTOMS .; RECORDED 03/07/20 14 9:30AM BY ANIRUDH GUEVARA MA, ANNOTATI ON/ADDEN DUM Not Available [facility] 4 05:45:12 Screenin g for malignan t neoplasm of colon Completed 201305/28/2014 RECORDED 03/07/20 14 9:30AM BY ANIRUDH GUEVARA MA, ANNOTATI ON/ADDEN DUM Not Available [facility] 4 05:45:13 Cervical disc disorder 824802097 Active 2017 Not Available [facility] 3 01:31:44 Anxiety state 933739820 Active 2018 Not Available [facility] 3 01:31:44 Uses home continuo us positive airway pressure ventilat ion supply 84810655689 03 Active 2019 Not Available [facility] 3 01:31:44 Bilatera l arthriti s of knees 07482989644 86377 Active 2020 saw NEOS 03/2021, TKR recommen ded Not Available [facility] 3 01:31:44 Moderate major depressi on, single episode 65805720 Active 2021 Not Available [facility] 3 01:31:44 Smoker 42786723 Completed 202203/08/2023 Kaye Zimmerman MD [address], [place], [address] , [facility] 3 14:16:36 Obstruct kamila sleep apnea syndrome 95183564 Active 2022 Not Available [facility] 3 01:31:44 Asthma 368598517 Active 2022 Not Available [facility] 3 01:31:44 Osteoart hritis of knee 987701641 Active 2023 marked OA on XRAY Iam Gutiérrez MD [address], [place], [address] , [facility] 4 08:02:11 Otitis externa of right ear 26677747540 01046 Completed 202306/30/2024 Kaye Zimmerman MD [address], [place], [address] , [facility] 4 16:06:19 Acute right otitis media 905312530 Completed 202306/30/2024 Kaye Zimmerman MD [address], [place], [address] , [facility] 4 15:48:38 Ex-smoke r 6779035 Active 2023 Kaye Zimmerman MD [address], [place], [address] , [facility] 4 15:50:23 Adrenal adenoma 021940642 Active 2024 Kaye Zimmerman MD [address], [place], [address] , [facility] 5 15:30:14 Body mass index 40+ - severely obese 168442451 Active 2024 Anirudh stoll [place] null, [facility] 5 17:19:32 Notes:Some problems listed i n Documents: #[id number], #[id number], #[id number], #[id number], #[id number], #[id number], #[id number], #[id number] could not be added to this patient's chart. Please review these documents and add these problems to the patient's chart manually as needed. Problem Notes None recorded. Procedures Surgical History Date Name Laterality Status Provider Name and Address Organization Details Recorded Time 03/30 total replacement of left knee joint completed Kathy Roman [facility] 5 07:39:57 09/19 injection of cortisone completed Anirudh stoll [place] [facility] 4 17:13:01 03/01 Most Recent Mammogram completed Jerrica Knox [facility] 3 11:13:40 03/01 Mammogram Screening completed Anirudh stoll MA [facility] 5 13:41:17 01/28 ultrasonography of bilateral breasts completed Marcia Shepherd [facility] 2 10:33:48 02/13 Date of Last Colonoscopy completed Kavon Nagy [facility] 9 10:42:10 02/13 Colonoscopy completed Marcia Joao [facility] 9 10:42:01 02/13 esophagogastroduodenoscopy completed Stefani illa Joao [facility] 9 10:42:27 12/27 injection into shoulder joint completed Glendachidi Gatica [facility] 9 13:10:19 08/24 injection of steroid completed Lynette Koroma [facility] 8 11:27:57 11/08 Mammogram one breast completed Marcia Shepherd [facility] 8 16:21:34 11/19 Date of Last Pap Smear completed Anirudh stoll [place] [facility] 7 16:16:10 04/27 Cholecystectomy completed Anirudh stoll MA [facility] 5 09:46:39 11/18 cervical arthrodesis by anterior technique completed Iam Gutiérrez MD [address] [facility] [address], [place], [address] , [facility] 8 09:43:12 Imaging Results None recorded. Procedure Notes None recorded. Medical Equipment None Reported. Allergies Allergen ID Allergen Name Allergen Category Reaction Reaction Severity Criticality Documentation Date Start Date Code Code System Note Provider Name and Address Organization Details Recorded Time 81408 gabapenti n medicatio n other Not available Not available 08/04/2019 16289 RxNorm Emoti onal, irrit ation PENNY Ricardo, [facility] 2 13:55:27 Medications Name Sig Start Date Stop Date Status Note LastModified by Organization Details LastModified Time celecoxib 200 mg capsule TAKE 1 CAPSULE BY MOUTH DAILY. PLEASE START THIS MEDICATI ON THREE DAYS PRIOR TO SURGERY 07/02 completed Not Available Not Available Not Available cyclobenz aprine 10 mg tablet TAKE 1 TABLET BY MOUTH 3 TIMES A DAY NEEDED FOR MUSCLE SPASMS/ PAIN 07/02 completed Not Available Not Available Not Available methocarb mabel 500 mg tablet Take 1 tablet 3 times a day by oral route as needed for 20 days. 07/15 completed Not Available Not Available Not Available terbinafi ne HCl 1 % topical cream 2 TIMES PER DAY 07/20 completed RECORDED 09/05/20 13 8:13AM BY SAUL CORONADO PA-C, MEDICATI ON AUTO-JAME CTIVATIO N; Not Available Not Available Not Available bupropion HCl SR 150 mg tablet,12 hr sustained -release Take 1 tablet daily for 3 days then after 3 days increase to 1 tablet twice a day for 12 weeks 06/16 completed Not Available Not Available Not Available azelastin e 0.05 % eye drops INSTILL 1 DROP INTO AFFECTED EYE TWICE A DAY 05/30 completed Not Available Not Available Not Available prednison e 10 mg tablet Take 4 tablets every day by oral route as directed for 8 days. 02/06 completed Not Available Not Available Not Available oxybutyni n chloride ER 15 mg tablet,ex tended release 24 hr TAKE 1 TABLET BY MOUTH EVERY DAY 11/07 completed Not Available Not Available Not Available gabapenti n 600 mg tablet 08/04 completed Not Available Not Available Not Available nicotine 14 mg/24 hr daily transderm al patch Apply 1 patch every day by transder mal route for 14 days. 2014 active Not Available Not Available Not Avai lable tizanidin e 2 mg tablet Take 1 tablet every day by oral route in the morning for 10 days. 07/07 completed Not Available Not Available Not Available clindamyc in HCl 300 mg capsule 11/07 completed Not Available Not Available Not Available oxybutyni n chloride ER 10 mg tablet,ex tended release 24 hr TAKE 2 TABLETS BY MOUTH EVERY DAY 12/29 completed Not Available Not Available Not Available azithromy joyce 250 mg tablet TAKE 2 TABLETS (500 MG) BY ORAL ROUTE ONCE DAILY FOR 1 DAY THEN 1 TABLET (250 MG) BY ORAL ROUTE ONCE DAILY FOR 4 DAYS 02/06 completed Not Available Not Available Not Available ibuprofen 800 mg tablet THREE TIMES DAILY 2013 active RECORDED 12/28/19 14 4:47PM BY IAM GUTIÉRREZ MD, ANNOTATI ON/BLANQUITA LOPEZ; Not Available Not Available Not Available tramadol 37.5 mg-acetam inophen 325 mg tablet TAKE 2 TABLETS EVERY 6 HOURS BY ORAL ROUTE FOR 30 DAYS. 10/12 completed Not Available Not Available Not Available bisoprolo l 10 mg-hydroc hlorothia zide 6.25 mg tablet 04/04 completed Not Available Not Available Not Available fluconazo le 150 mg tablet Take 1 tablet every day by oral route as directed for 1 day. 2014 active Not Available Not Available Not Avai lable valacyclo vir 1 gram tablet TAKE 1 TABLET BY MOUTH THREE TIMES A DAY FOR 7 DAYS 07/02 completed Not Available Not Available Not Available hydrocodo ne 5 mg-acetam inophen 325 mg tablet EVERY 4-6 HOURS 11/07 completed Not Available Not Available Not Available meloxicam 15 mg tablet TAKE 1 TABLET ORALLY DAILY NEEDED FOR INFLAMMA TION DO NOT TAKE ALONG WITH ANY OTHER NSAIDS 10/30 completed Not Available Not Available Not Available sucralfat e 1 gram tablet Take 1 tablet 4 times a day by oral route as directed for 14 days. 10/23 completed Not Available Not Available Not Available phenazopy ridine 200 mg tablet 1 TABLET BY MOUTH 3 TIMES A DAY,X2 DAYS 10/23 completed Not Available Not Available Not Available prednison e 20 mg tablet TAKE 2 TABLETS BY MOUTH ONCE DAILY FOR INFLAMMA TION FOR 5 DAYS 05/30 completed Not Available Not Available Not Available sertralin e 100 mg tablet Take 1 tablet every day by oral route for 90 days. 10/24 completed Not Available Not Available Not Available bisoprolo l 5 mg-hydroc hlorothia zide 6.25 mg tablet TAKE 1 TABLET BY MOUTH EVERY DAY 08/04 completed Not Available Not Available Not Available betametha sone valerate 0.1 % lotion DAILY 07/20 completed RECORDED 09/05/20 13 8:13AM BY SAUL CORONADO, PASalinasC, MEDICATI ON AUTO-JAME CTIVATIO N;APPLY SPARINGL Y Not Available Not Available Not Available ciproflox acin 250 mg tablet TAKE 1 TABLET BY MOUTH TWICE A DAY FOR 3 DAYS 10/23 completed Not Available Not Available Not Available sulfameth oxazole 800 mg-trimet hoprim 160 mg tablet Take 1 tablet twice a day by oral route for 3 days. 03/30 completed Not Available Not Available Not Available peg-elect rolyte solution 420 gram oral solution active Not Available Not Available Not Available tramadol 50 mg tablet Take 2 tablets 3 times a day by oral route for 30 days. 2024 active Not Available Not Available Not Avai lable acetamino phen 500 mg tablet 11/07 completed Not Available Not Available Not Available triamcino lone acetonide 0.1 % topical cream APPLY THIN COAT TO AFFECTED AREA TWICE A DAY 08/14 completed no longer needed Not Available Not Available Not Available amoxicill in 500 mg tablet TAKE 1 TABLET BY MOUTH EVERY 6 HOURS UNTIL FINISHED 07/28 completed Not Available Not Available Not Available acetamino phen ER 650 mg tablet,ex tended release Take 1 tablet twice a day by oral route as needed for 30 days. active Not Available Not Available No t Available cefadroxi l 500 mg capsule TAKE 1 CAPSULE BY MOUTH EVERY 12 HOURS FOR 14 DAYS 07/02 completed Not Available Not Available Not Available oxycodone -acetamin ophen 5 mg-325 mg tablet TID/PRN 12/28 completed RECORDED 07/01/20 09 10:46AM BY IAM GUTIÉRREZ MD, MEDICATI ON AUTO-JAME CTIVATIO N; Not Available Not Available Not Available lorazepam 0.5 mg tablet NEEDED 03/07 completed RECORDED 03/07/20 14 9:56AM BY ANIRUDH GUEVARA MA, OFFICE VISIT; Not Available Not Available Not Available methocarb mabel 750 mg tablet Take 1 tablet every day by oral route at bedtime for 5 days. 12/29 completed Not Available Not Available Not Available amlodipin e 5 mg-benaze pril 10 mg capsule TAKE 1 CAPSULE BY MOUTH EVERY DAY active Not Available Not Available No t Available diazepam 2 mg tablet TAKE 1 TABLET BY MOUTH THREE TIMES A DAY NEEDED active Not Available Not Available No t Available phenazopy ridine 100 mg tablet TAKE 1 TABLET BY MOUTH THREE TIMES A DAY WITH MEALS FOR 3 DAYS 05/30 completed Not Available Not Available Not Available cephalexi n 500 mg capsule 12/23 completed Not Available Not Available Not Available pantopraz ole 40 mg tablet,de layed release TAKE 1 TABLET BY MOUTH EVERY DAY active Not Available Not Available No t Available lidocaine 5 % topical patch APPLY 1 PATCH TO MOST PAINFUL AREA ONCE DAILY NEEDED FOR 2 WEEKS. LEAVE ON UP TO 12 HOURS active Not Available Not Available No t Available indometha joyce 50 mg capsule Take 1 capsule every 12 hours by oral route as needed for 7 days. 11/07 completed Not Available Not Available Not Available nicotine 21 mg/24 hr daily transderm al patch Apply 1 patch every day by transder mal route for 14 days. 2014 active Not Available Not Available Not Avai lable nystatin- triamcino lone 100,000 unit/g-0. 1 % topical cream TWO TIMES DAILY 03/07 completed RECORDED 03/07/20 14 9:56AM BY ANIRUDH GUEVARA MA, OFFICE VISIT; Not Available Not Available Not Available docusate sodium 100 mg capsule TAKE 1 CAPSULE BY MOUTH TWICE A DAY FOR 30 DAYS 07/02 completed Not Available Not Available Not Available gabapenti n 300 mg capsule 04/04 completed Not Available Not Available Not Available oxycodone -acetamin ophen 2.5 mg-325 mg tablet TAKE 1 TABLET BY MOUTH EVERY 6 HOURS NEEDED FOR 5 DAYS 07/02 completed Not Available Not Available Not Available selenium sulfide 2.5 % shampoo DAILY FOR 7 DAYS FOR TINEA VERSICOL OR, THEN WEEKLY 04/09 completed RECORDED 04/09/20 14 4:00PM BY JAMES ANDERSON/BLANQUITA LOPEZ; Not Available Not Available Not Available ibuprofen 600 mg tablet TAKE 1 TABLET BY MOUTH 3 TIMES A DAY WITH MEALS 07/02 completed Not Available Not Available Not Available albuterol sulfate HFA 90 mcg/actua tion aerosol inhaler INHALE 2 PUFFS BY MOUTH EVERY 4 HOURS NEEDED active Not Available Not Available No t Available hydromorp reon 4 mg tablet TAKE 1 TO 1.5 TABLETS BY MOUTH EVERY 4 HOURS NEEDED FOR SEVERE PAIN. 07/02 completed Not Available Not Available Not Available morphine 15 mg immediate release tablet TAKE 1 TO 2 TABLETS BY MOUTH EVERY 4 HOURS NEEDED FOR MODERATE PAIN 07/02 completed Not Available Not Available Not Available ondansetr on 4 mg disintegr ating tablet PLACE 1 TABLET EVERY 8 HOURS BY TRANSLIN GUAL ROUTE FOR 7 DAYS 07/02 completed Not Available Not Available Not Available cefdinir 300 mg capsule TAKE 1 CAPSULE BY MOUTH EVERY 12 HOURS DIRECTED FOR 7 DAYS 06/30 completed Not Available Not Available Not Available fluticaso ne propionat e 50 mcg/actua tion nasal spray,arvind pension Inhale 1 spray every day by intranas al route as directed for 30 days. 2014 active Not Available Not Available Not Avai lable sertralin e 50 mg tablet TAKE 1 TABLET BY MOUTH EVERY DAY 11/07 completed Not Available Not Available Not Available Ortho Tri-Cycle n (28) 0.18 mg(7)/0.2 15mg(7)/0 .25 mg(7)-0.0 35 mg tablet DAILY 06/20 completed RECORDED 07/20/20 08 3:46PM BY DENIS VALLADARES MD, MEDICATI ON AUTO-JAME CTIVATIO N; Not Available Not Available Not Available naproxen 500 mg tablet Take 1 tablet twice a day by oral route as needed for 20 days. 03/27 completed Not Available Not Available Not Available amoxicill in 875 mg-potass ium clavulana te 125 mg tablet Take 1 tablet every 12 hours by oral route as directed for 10 days. 2014 active Not Available Not Available Not Avai lable nicotine 7 mg/24 hr daily transderm al patch Apply 1 patch every day by transder mal route for 30 days. 2014 active Not Available Not Available Not Avai lable oxycodone 5 mg tablet 02/01 completed Not Available Not Available Not Available neomycin- polymyxin -hydrocor t 3.5 mg-10,000 unit/mL-1 % ear drops,arvind p INSTILL 4 DROPS INTO AFFECTED EAR(S) 3 TIMES A DAY 07/07 completed Not Available Not Available Not Available albuterol (refill) 90 mcg/actua tion aerosol inhaler Q 4 HOURS PRN 01/05 completed RECORDED 01/11/20 14 1:45PM BY DICK PUENTE PA-C, MEDICATI ON AUTO-JAME CTIVATIO N; Not Available Not Available Not Available codeine-g uaifenesi n oral syrup Q 4 HOURS PRN 11/03 completed RECORDED 11/04/19 12 1:29PM BY IAM GUTIÉRREZ MD, MEDICATI ON AUTO-JAME CTIVATIO N; Not Available Not Available Not Available Senna Plus 8.6 mg-50 mg tablet TAKE 2 TABLETS BY MOUTH NEEDED AT BEDTIME FOR 10 DAYS. 12/23 completed Not Available Not Available Not Available bupropion HCl XL 300 mg 24 hr tablet, extended release 04/04 completed Not Available Not Available Not Available Alcohol Prep Pads Apply 1 pad every week by topical route for 30 days. 2024 active Not Available Not Available Not Avai lable nitrofura ntoin monohydra te/macroc rystals 100 mg capsule 10/23 completed Not Available Not Available Not Available duloxetin e 20 mg capsule,d elayed release TAKE 1 CAPSULE BY MOUTH EVERY DAY active Not Available Not Available No t Available pregabali n 75 mg capsule Take 1 capsule every day by oral route at bedtime for 30 days. 2024 active Not Available Not Available Not Avai lable chlorhexi dine gluconate 0.12 % mouthwash PLEASE SEE ATTACHED FOR DETAILED DIRECTIO NS 05/30 completed Not Available Not Available Not Available omeprazol e BID 07/01 completed RECORDED 07/01/20 10 6:18PM BY IAM GUTIÉRREZ MD, ANNOTATI ON/ADDEN DUM; Not Available Not Available Not Available intrauter ine device (IUD) 1 device 11/07 completed Not Available Not Available Not Available Clindamyc in Phosphate Vaginal DAILY AT BEDTIME FOR 7 DAYS 09/05 completed RECORDED 09/05/20 12 10:05AM BY ANIRUDH GUEVARA MA, OFFICE VISIT; Not Available Not Available Not Available Macrobid 1 CAP(S), MACROCRY STALS-MO NOHYDRAT E 100 MG, 2 TIMES A DAY, 7 DAYS 11/07 completed Not Available Not Available Not Available multivita min 1 PO DAILY active Not Available Not Available No t Available Zithromax TRI-GLENNA DAILY 10/29 completed RECORDED 11/04/19 12 1:29PM BY IAM GUTIÉRREZ MD, MEDICATI ON AUTO-JAME CTIVATIO N; Not Available Not Available Not Available diclofena c 1 % topical gel Apply 1 g every day by topical route as needed for 25 days. 12/23 completed for joint pain Not Available Not Available Not Available GaviLyte- G 236 gram-22.7 4 gram-6.74 gram-5.86 gram oral solution TAKE 8 OUNCE BY MOUTH DIRECTED FOLLOW PREP INSTRUCT IONS GIVEN BY YOUR DOCTOR'S OFFICE 03/27 completed Not Available Not Available Not Available Liletta 20.4 mcg/24 hr (up to 8 years) 52 mg intrauter ine device Take 1 device every day by intraute ri route around the clock. active Not Available Not Available No t Available Zepbound 2.5 mg/0.5 mL subcutane ous pen injector Inject 2.5 mg every week by subcutan eous route for 30 days. 07/02 completed Not Available Not Available Not Available Vitals Date Recorded Heart rate Provider Name an d Address Organization Details Last Updated DateTime 10/30/2024 98 /min Kaye Zimmerman MD [address] [address], [place], [address], [facility] 10/30/2024 17:54:04 Date Recorded Body height Body mass index (BMI) Body weight Oxygen saturation Oxygen saturation in Arterial blood by Pulse oximetry Body temperature Systolic And Diastolic Provider Name and Address Organization Details Last Updated DateTime 5 160.02 cm 44.6 kg/m2 651106. 28 g 97 % 97 % 98.1 [degF] 121/81 mm[Hg] Anirudh edwards MA [facility] 14:43:29 Date Recorded Heart rate Provider Name an d Address Organization Details Last Updated DateTime 03/20/2025 98 /min Kaye Zimmerman MD [address], [address], [facility] 03/20/2025 13:57:48 Date Recorded Body height Body mass index (BMI) Body weight Heart rate Oxygen saturation Oxygen saturation in Arterial blood by Pulse oximetry Body temperature Systolic And Diastolic Provider Name and Address Organization Details Last Updated DateTime 5 160.02 cm 43 kg/m2 583020. 95 g 111 /min 97 % 97 % 97.8 [degF] 115/81 mm[Hg] Anirudh edwards MA [facility] 13:48:48 Date Recorded Body height Body mass index (BMI) Body weight Heart rate Oxygen saturation Oxygen saturation in Arterial blood by Pulse oximetry Body temperature Systolic And Diastolic Provider Name and Address Organization Details Last Updated DateTime 5 160.02 cm 43.8 kg/m2 284131. 32 g 120 /min 98 % 98 % 97.2 [degF] 126/86 mm[Hg] Annika monae MA [facility] 5 11:08:04 Date Recorded Body height Body mass index (BMI) Body weight Heart rate Oxygen saturation Oxygen saturation in Arterial blood by Pulse oximetry Body temperature Systolic And Diastolic Provider Name and Address Organization Details Last Updated DateTime 5 160.02 cm 40.9 kg/m2 630458. 84 g 86 /min 99 % 99 % 97.6 [degF] 120/84 mm[Hg] Anirudh edwards MA [facility] 5 09:11:33 Date Recorded Body height Body mass index (BMI) Body weight Heart rate Oxygen saturation Oxygen saturation in Arterial blood by Pulse oximetry Body temperature Systolic And Diastolic Systolic And Diastolic Provider Name and Address Organization Details Last Updated DateTime 5 160.02 cm 39.9 kg/m2 632045. 28 g 89 /min 98 % 98 % 97 [degF] 132/87 mm[Hg] 122/76 mm[Hg] Anirudh edwards MA [facility] 5 15:28:30 Social History Question Answer Notes LastModified by Organizat ion Details LastModified Time Tobacco Smoking Status Former [facility]23 14:10:32 Do You Have An Advance Directive? No Information not available 12/29/2021 Is Blood Transfusion Acceptable In An Emergency? Yes Information not available 05/10/2015 What Is Your Level Of Caffeine Consumption? Moderate 1 Cup Of Tea Daily Information not available 04/01/2016 How Much Tobacco Do You Chew? None Information not available 05/10/2015 What Type Of Diet Are You Following? REGULAR Poor Appetite Due To Bowels; 1 Meal Per Day With Occasional Snacks And Tea, Lots Of Water, Herbalife Shakes Information not available 04/27/2022 Which Illicit Or Recreational Drugs Have You Used? None Information not available 05/10/2015 When Did You Quit Smoking? 1-5yearssin [place] e[place] Information not available 03/20/2025 Live Alone Or With Others? With Others Daughter And Boyfriend Information not available 12/29/2021 Do You Take Precautions To Prevent Distracted Driving? Yes Information not available 05/10/2015 How Often Do You Need To Have Someone Help You When You Read Instructions, Pamphlets, Or Other Written Material From Your Doctor Or Pharmacy? Never Information not available 08/30/2015 Have You Served In The ? No Information not available 09/15/2016 Have You Or Anyone In Your Household Had Any Of The Following Symptoms In The Last 14 Days: Sore Throat, Cough, Chills, Body Aches For Unknown Reasons, Shortness Of Breath For Unknown Reasons, Loss Of Smell, Loss Of Taste, Fever At Or Greater Than 100 Degrees Fahrenheit? No [email or web address] Information not available 12/23/2020 Are You Or Anyone In Your Household A Health Care Provider Or Emergency Responder? No [email or web address] Information not available 12/23/2020 To The Best Of Your Knowledge Have You Been In Close Proximity To Any Individual Who Tested Positive For COVID-19? No [email or web address] Information not available 12/23/2020 Have You Recently Traveled To A COVID-19 High Risk Area Or Gathering In The Last 10 Days? No [email or web address] Information not available 12/23/2020 What Was The Date Of Your Most Recent Tobacco Screening? 08/14/2025 Information not available 08/14/2025 How Many Children Do You Have? 3 Alejandro Cheng Gabrielle Information not available 07/02/2025 What Is Your Current Pack Years? 10packyears Information not available 12/29/2021 Do You Use Protection During Sex? Always Information not available 05/10/2015 Do You Use Your Seat Belt Or Car Seat Routinely? Yes Information not available 12/29/2021 Seat Belts Used Routinely Yes Information not available 12/29/2021 Are You Sexually Active? No Information not available 12/29/2021 Smoke Alarm In Home Yes Information not available 12/29/2021 Do You Have Smoke And Carbon Monoxide Detectors In Your Home? Yes Information not available 12/29/2021 At What Age Did You Start Smoking Tobacco? 12 Information not available 05/10/2015 Are You Passively Exposed To Smoke? No Information not available 05/10/2015 How Much Tobacco Do You Smoke? 0.25 PPD 6-7 Cigarettes Per Day Information not available 04/13/2017 Do You Use Sunscreen Routinely? No Information not available 05/10/2015 How Many Years Have You Smoked Tobacco? 30 Quit Late 2019 Information not available 04/27/2022 Sex: Unknown Functional Status Question Answer Note LastModified by Organizat ion Details LastModified Time Do you use any illicit or recreational drugs? No Information not available 12/29/2021 Do you or have you ever used any other forms of tobacco or nicotine? No Information not available 12/29/2021 What is your level of alcohol consumption? Occasional >5 drinks 1 time per week Information not available 08/14/2025 Do you or have you ever used smokeless tobacco? Never used smokeless tobacco Information not available 02/02/2020 Are you currently employed? Yes Information not available 01/10/2018 Are you able to walk independently without assistance or assistive devices? YESWOREST Information not available 12/29/2021 Are you able to care for yourself independently? 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 Never used electronic cigarettes Information not available 12/29/2021 What is your exercise level? Moderate walking for 20 min; using stairs, swimming 3x weekly Information not available 04/27/2022 Mental Status None recorded. Family History Relationship Description Onset Age of this Age Resolved Age Notes LastModified by Organization Details LastModified Time Mother Essential hypertension [email or web address] s Not available 12/29/2021 13:59:30 Mother Anxiety disorder [email or web address] s Not available 12/29/2021 13:59:30 Mother Arthritis [email or web address] s Not available 12/29/2021 13:59:30 Mother Obesity [email or web address] Not available 14:37:50 Mother Malignant neoplasm of breast [email or web address] Not available 2021 14:38:03 Mother Malignant neoplasm of kidney [email or web address] Not available 2021 14:38:13 Father Essential hypertension [email or web address] s Not available 12/29/2021 13:59:30 Father Heart disease [email or web address] s Not available 12/29/2021 13:59:30 Father Cerebrovascu lar accident [email or web address] Not available 14:38:22 Father Myocardial infarction [email or web address] Not available 12/29 14:38:35 Brother Essential hypertension [email or web address] s Not available 12/29/2021 13:59:30 Unspecified Relation Heart disease [email or web address] s Not available 12/29/2021 13:59:30 Medical History Condition Response Depression Y Obesity Y Arthritis Y Acid Reflux (GERD) Y Bladder Problems Y Reflux/GERD Y Hypertension Y Gynecological History Statement/Question Response Date of Last Pap Smear 11/19/2015 Date of Last Colonoscopy 02/13/2019 Most Recent Mammogram 03/01/2023 Obstetrics History GPAL:G 0 P 0 0 0 0 Immunizations Vaccine Type Date Status Note Provider Name and Address Organization Details Recorded Time MMR 07/17/20 15 completed Not Available [facility] 11/04/2019 02:21:55 Hep B, adult 07/17/20 15 completed Not Available [facility] 11/04/2019 02:21:35 COVID-19, mRNA, LNP-S, PF, 30 mcg/0.3 mL dose 05/11/20 21 completed Not Available [facility] 07/31/2023 01:31:44 COVID-19, mRNA, LNP-S, PF, 30 mcg/0.3 mL dose 06/05/20 21 completed Not Available [facility] 07/31/2023 01:31:44 Hep B, adult 09/27/20 15 completed Not Available [facility] 11/04/2019 02:21:35 MMR 09/27/20 15 completed Not Available [facility] 11/04/2019 02:21:55 Hep B, adult 04/01/20 16 completed Not Available [facility] 11/04/2019 02:21:35 Influenza, split virus, quadrivalent, PF 07/15/20 17 cancelled patient objection Not Available [facility] 11/04/2019 02:22:07 Td (adult), 2 Lf tetanus toxoid, preservative free, adsorbed 07/29/20 18 completed Not Available [facility] 11/04/2019 02:21:30 Influenza, split virus, quadrivalent, PF 07/29/20 18 cancelled patient objection Not Available [facility] 11/04/2019 02:22:22 Tdap 08/01/20 08 completed Not Available [facility] 07/31/2023 01:31:44 Past Encounters Encounter ID Performer Location Encounter Start Date Encounter Closed Date Diagnosis/Indication Diagnosis SNOMED-CT Code Diagnosis ICD10 Code Diagnosis IMO Codes Diagnosis Note [id number] auto[facility]Comm erce [id number] [facility] [place] [address] 08/10/2007 00:00:00 [id number] autoEComm erce [id number] [facility] [place] [address] 08/30/2007 00:00:00 [id number] autoEComm erce [address] [facility] [place] [address] 10/03/2007 00:00:00 [id number] autoEComm erce [address] [facility] [place] [address] 03/02/2008 00:00:00 [id number] autoEComm erce [address] [facility] [place] [address] 08/01/2008 00:00:00 [id number] autoEComm erce [address] [facility] [place] [address] 08/28/2008 00:00:00 [id number] [address]Comm [address] [place] [address] 12/18/2008 00:00:00 [id number] autoEComm erce [address] [place] [address] 01/14/2010 00:00:00 [id number] autoEComm erce [address] [facility] [place] [address] 07/01/2010 00:00:00 [id number] autoEComm erce [address] [facility] [place] [address] 01/01/2011 00:00:00 [id number] autoEComm erce [address] [facility] [place] [address] 09/01/2011 00:00:00 [id number] autoEComm erce [address] [facility] [place] [address] 09/04/2011 00:00:00 [id number] autoEComm erce [address] [facility] [place] [address] 10/20/2011 00:00:00 [id number] autoEComm erce [address] [facility] [place] [address] 01/04/2012 00:00:00 [id number] autoEComm erce [address] [facility] [place] [address] 05/18/2012 00:00:00 [id number] autoEComm erce [address] [facility] [place] [address] 09/05/2012 00:00:00 [id number] autoEComm erce [address] [facility] [place] [address] 06/20/2013 00:00:00 [id number] autoEComm erce [address] [facility] [place] [address] 09/05/2013 00:00:00 [id number] autoEComm erce [address] [facility] [place] [address] 12/06/2013 00:00:00 [id number] autoEComm erce [address] [facility] [place] [address] 03/07/2014 00:00:00 [id number] GRECIA Olivarez Main Office [address] [address] [place] [address] 12/05/2014 15:18:04 12/05/2014 15:52:53 Otitis media [id number] OM left ear, will treat with augmentin x 10 days as she also has sinusitis sx, stay well hydrated, tea with honey, soups, Tylenol/ ibuprofen for fever/ pain Acute sinusitis 64105476 Candidiasis of vagina 77793457 Having yeast infection sx, she has had them previously . [id number] Iam Gutiérrez MD Main Office [address] [address] [place] [address] 05/10/2015 09:35:00 05/10/2015 10:34:53 Elevated blood-pressure reading without diagnosis of hypertension 116025425 Alcoholism 2578729 [id number] Iam Gutiérrez MD Main Office [facility] [address] [place] [address] 05/29/2015 09:22:24 05/29/2015 10:16:25 Alcoholism 8237294 Essential hypertension 30667864 [id number] Iam Gutiérrez MD Main Office [address] [place] [address] [place] [address] 06/28/2015 10:16:39 06/28/2015 14:31:00 Essential hypertension 63149669 [id number] Iam Gutiérrez MD Main Office [facility] [address] [address] [place] [address] 07/17/2015 14:52:33 07/17/2015 15:13:16 Administration of measles and mumps and rubella vaccine 84725387 Requires c ourse of hepatitis B vaccination 134943834 [id number] Iam Gutiérrez MD Main Office [facility] [address] [address] [place] [address] 08/30/2015 12:46:26 08/30/2015 13:52:42 Pain in lower limb 90243452 M79.662 Adult atte ntion deficit hyperactivity disorder 823643492 F90.9 [id number] Iam Gutiérrez MD Main Office [address] [address] [place] [address] 09/27/2015 10:06:45 09/27/2015 10:51:39 Essential hypertension 85724642 I10 Requires c ourse of hepatitis B vaccination 150696131 Z23 Administra tion of measles and mumps and rubella vaccine 18553483 Z23 Multiple skin tags 54416 7009 L91.8 [id number] Iam Gutiérrez MD Main Office [address] [address] [place] [address] 04/01/2016 09:45:49 04/01/2016 10:52:31 Adult health examination 848178556 Z00.00 Essential hypertension 26466423 I10 Requires c ourse of hepatitis B vaccination 984261470 Z23 Screening for malignant neoplasm of breast 427278429 Z12.39 Major depr essive disorder 592341634 F32.9 Gastro-eso phageal reflux disease with esophagitis 349282325 K21.0 Hyperlipidemia 94846418 E78.0 Fatigue 98053926 R53.83 Body mass index 40+ - severely obese 254368409 Z68.41 [id number] Iam Gutiérrez MD Main Office [address] [address] [place] [address] 04/21/2016 10:05:12 04/21/2016 15:29:15 [id number] Ima Gutiérrez MD Main Office [address] [address] [place] [address] 09/15/2016 14:14:32 09/15/2016 15:53:22 Chest pain 23512466 R07.9 Right flank pain 4415621 09 R10.9 Dyspnea on exertion 6084 5006 R06.09 [id number] Iam Gutiérrez MD Main Office [address] [address] [place] [address] 04/13/2017 15:08:05 04/13/2017 16:26:54 Adult health examination 532959743 Z00.00 Screening for malignant neoplasm of breast 963448513 Z12.39 Multiple skin tags 36913 7009 L91.8 Screening for malignant neoplasm of cervix 090780621 Z12.4 Body mass index 40+ - severely obese 985371492 Z68.41 E66.01 Lateral epicondylitis 20 2913562 M77.12 Hyperlipidemia 67485671 E78.5 Fatigue 55059034 R53.83 Alcoholism 3711459 F10.2 0 [id number] Iam Gutiérrez MD Main Office [address] [address] [place] [address] 07/15/2017 09:33:45 07/15/2017 10:30:01 Obesity 003734539 E66.9 Immunization refused 275 192132 Z28.21 Major depr essive disorder 152136547 F32.9 [id number] Iam Gutiérrez MD Main Office [address] [address] [place] [address] 08/10/2017 14:00:51 08/10/2017 15:42:31 Dyspnea on exertion 53225486 R06.09 Mild inter mittent asthma 464966452 J45.20 Tobacco de pendence syndrome 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 F17.200 [id number] Iam Gutiérrez MD Main Office [address] [address] [place] [address] 01/10/2018 09:01:09 01/10/2018 10:22:15 Major depressive disorder 373885289 F32.9 Tobacco de pendence syndrome 51526649 F17.290 Body mass index 40+ - severely obese 157115543 E66.01 Z68.41 Hyperlipidemia 44330391 E78.5 Fatigue 58973036 R53.83 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 369888332 F19.10 Binge drinker 944804289 F10.20 Weekend binge drinking [id number] Iam Gutiérrez MD Main Office [address] [address] [place] [address] 02/15/2018 16:26:55 02/15/2018 16:33:57 Major depressive disorder 903232277 F32.9 [id number] Iam Gutiérrez MD Main Office [address] [address] [place] [address] 07/29/2018 08:22:16 07/29/2018 10:17:28 Essential hypertension 62164707 I10 Adult heal th examination 051050188 Z00.00 Requires a tetanus booster 644257244 Z23 Influenza vaccination declined 290917652 Z28.21 Body mass index 40+ - severely obese 083804833 E66.01 Z68.42 Multiple skin tags 49789 7009 L91.8 Screening for malignant neoplasm of cervix 843373025 Z12.4 Chronic ankle pain 88814 49107 9109 M25.571 G89.29 Cervical d isc disorder 943524867 M50.90 History of anterior fusion 2005 C4-5, 5-6 [id number] Lynette Hernandez us, [employer]PLIANCE MANAGER Main Office [address] [place] [address] 10/12/2018 15:06:34 10/12/2018 15:52:08 Asthmatic bronchitis 230063648 J45.909 rest, hydration, start meds, reviewed side effects, how to take meds. Use MDI of albuterol as needed (has this at home) Localized swelling, mass and lump, lower limb 912705329 R22.41 hard mass right anterior lower leg, check xray to rule out bony lesion and refer to orthopedic s to see if excision is needed due to firm fixed nature of the mass. [id number] Iggy Rubio MD Main Office [address] [place] [address] 02/06/2019 11:09:55 02/06/2019 12:27:09 Essential hypertension 39232988 I10 will refill combo med (off for past wk) and check bmp (below in cmp) Liver enzy mes level above reference range 941338587 R74.8 Impaired f asting glycemia 237518894 R73.01 Leukocytosis 039283667 D 72.829 Major depr essive disorder 872416412 F32.9 pt states she ran out of ssri last month, too - will refill [id number] Iam Gutiérrez MD Main Office [address] [place] [address] 08/04/2019 09:50:01 08/04/2019 11:07:41 Screening for malignant neoplasm of cervix 298455015 Z12.4 Essential hypertension 95083367 I10 Adult heal th examination 694361165 Z00.00 Cervical d isc disorder 020076000 M50.90 History of anterior fusion 2004 C4-5, 5-6 Female uri nary stress incontinence 54948069 N39.3 Hypersomnia 50523217 G47 .10 Chronic pain syndrome 37 7330146 G89.4 Prediabetes 931132389 R7 3.03 Hyperlipidemia 94646428 E78.5 Fatigue 43381067 R53.83 Gastroesop hageal reflux disease 579296861 K21.9 Anxiety state 590088615 F41.1 Body mass index 40+ - severely obese 886091550 E66.01 Z68.41 Major depr essive disorder 857508017 F32.1 Binge drinker 126591260 F10.20 Weekend binge drinking 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 751305931 F19.10 [id number] Iam Gutiérrez MD Main Office [address] [place] [address] 02/02/2020 09:06:52 02/02/2020 11:36:28 Hypertensive disorder 99323888 I10 Prediabetes 442526941 R7 3.03 Uses home continuous positive airway pressure ventilation supply 2348964641 103 Z99.11 Stable on CPAP Obstructiv e sleep apnea syndrome 45913259 G47.33 Cervical d isc disorder 892590505 M50.90 History of anterior fusion 2005 C4-5, 5-6 Alcoholism 7638929 F10.2 0 [id number] Iam Gutiérrez MD Main Office [address] [place] [address] 04/08/2020 13:36:52 04/08/2020 14:45:02 Upper abdominal pain 19255743 R10.10 Superficia l peroneal neuropathy 031134718 G57.32 Reassuranc e. Likely compressiv e neuropathy , now improved. [id number] Corine larson MD Main Office [address] [place] [address] 10/23/2020 15:28:33 10/24/2020 12:17:00 Adult health examination 923118486 Z00.00 Pt is in fairly good health. Social and family history reviewed. Immunizati ons reviewed, advised annual flu shot. She is not up to date on dental and eye providers, mammogram not up to date, tool and machine maintainer due, Reviewed diet and exercise. Screening for malignant neoplasm of cervix 910446400 Z12.4 pt to see PRESSURE SUPERVISOR, has has IUD in for 6 yrs Essential hypertension 83224356 I10 BP is controlled on present regimen, continue all meds at current dosages. Continue with low salt diet, exercise Cervical d isc disorder 699157340 M50.90 History of anterior fusion 2005 C4-5, 5-6, stable Female uri lonnie stress incontinence 97059684 N39.3 has seen urogyn on oxybutinin Prediabetes 375425165 R7 3.03 check lab fasting Hyperlipidemia 63660651 E78.5 Fatigue 21334600 R53.83 Gastroesop hageal reflux disease 979068241 K21.9 avoid nsaids, PPI, avoid acidic food, caffeine, alcohol, spicy foods, eating before bed, consider EGD if sx worsening Anxiety state 539173245 F41.1 pt will see counselor and restart med, has been off sertraline Body mass index 40+ - severely obese 938201107 E66.01 Z68.41 pt has been losing, will continue on diet plan Major depr essive disorder 865423537 F32.1 Pt states she is struggling with this, currently on meds and would counseling , she will make appt through E[facility] , denies SI or HI Binge drinker 808034195 F10.20 Weekend binge drinking, pt states this has cut down, discussed AA and counseling 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 [id number] Kaye Zimmerman MD Telehealt h [address] [facility] [address] [facility] [place] [address] 11/19/2020 16:52:55 11/20/2020 10:56:04 Dysuria 20596413 R30.9 Advised hydration Constipation 09007029 K5 9.00 High fiber diet advised, and frequent hydration. [id number] Corine larson MD Main Office [address] [facility] [address] [facility] [place] [address] 12/23/2020 15:45:32 12/24/2020 09:51:11 Depressive disorder 79266669 F32.1 Pt doing well on SSRI at present dose, continue. Stress is improving and anxiety is more controlled , she is eating better, getting some exercise and losing weight. Alcohol use minimal. Sertraline 50 mg working well, she wants to continue and stay on this dose Liver enzy mes level above reference range 695208624 R74.8 hx elevated ggtp, should be lower with less drinking Chest pain 58147904 R07. 9 Due to ongoing sx , history of htn, female gender, age and family history would have her to stress test. Knee pain 52077921 M25.5 61 M25.562 pt states knees bone on bone, has seen ortho before for injections , would like re evaluation as she would like to be more active. Hypertensive disorder 38 966800 I10 BP is controlled on present regimen, continue all meds at current dosages. Continue with low salt diet, exercise Neck pain 59345119 M54.2 controlled at this time Screening for cardiovascular system disease 141636363 Z13.6 [id number] Kaye Zimmerman MD Main Office [address] [facility] [address] [place] [address] 04/04/2021 11:32:19 04/04/2021 12:18:22 Chronotropic incompetence 761206790 I45.89 Cardiology kita is made with Dr. Estrada for 04/24/21 to discuss results of stress echo and address atypical chest pains. Atypical chest pain 1025 58198 R07.89 [id number] Kaye Zimmerman MD Main Office [address] [facility] [address] [place] [address] 11/07/2021 13:25:47 11/07/2021 14:46:50 Cervical disc disorder 575704839 M50.90 Reviewed the risks and benefits of long-term use of opiate for chronic, non-malign ant pain. Reviewed with patient that group home opiate use is appropriat e treatment based on current medical condition and patient states that continued benefit is noted. Contract for opiate use is in place. Discussed side effects of opiates. Caution driving, reviewed fall risk, and treatment for constipati on, as well as option to fill in lesser amounts. A Prescripti on for an Opioid has been given to the patient and I have reviewed the patients profile in [facility] Partial fill of RX is possible. I advised pt my limitation with chronic pain management and tx. Will cont current tx from her previous provider for now although my recommenda tion is to tracie. Should she request for more she is aware her options are a referral to pain management although she is aware she may not get same tx options, or find a new provider. Gastroesop hageal reflux disease 149729919 K21.9 controlled on current medication s, requesting refills. Mixed urin christie incontinence 188154729 N39.46 controlled on current medication s, requesting refills. Low back pain 612096140 M54.50 Advised warm compress. No limitation with ROM, msk relaxtant provided risk of sedation discussed advised to space out with tramdol. Advised to avoid driving/dr inking or using machinery due to risk of sedation with msk relaxant.S he still has relatively good ROM with no eran tenderness thus will hold XR for hips/spine .PT referral provided. Strain of muscle of right groin region 7393765047 1331936 S76.011A See above, PT referral provided. [id number] Kaye Zimmerman MD Main Office [address] [facility] [address] [place] [address] 12/29/2021 13:46:13 12/29/2021 15:18:29 Adult health examination 910052408 Z00.00 Patient was counseled on healthy diet, exercise and nutrition due to Body mass index is 42.5 kg/m . Last Colonoscop y:Date: 02/13/19Res ult: no polypsPlan : per GI repeat 5yrs Last Mammogram: Date: 08/02/2018 Result:Moy n: due, referral provided importance discussed due to fhx. Last Pap smearDate: Result:Moy n: due, referral ordered. Bone density scanDate:R esult:Plan : will consider earlier if still drinking Vaccines:T d:07/29/18 Zoster: not [id number]: not [id number]: not dueInfluen za:Covid: 05/11/21, 06/05/21, plans to get booster this month Routine labs today Immunizati on status reviewed. Will screen based on risk factors. Regular dental and ophtho care advised as well as seat belt and sunscreen use. Distracted driving discussed. Medication reconciled . Body mass index 40+ - severely obese 514489164 Z68.41 - Diet and exercise discussed- Patient made aware of risks of obesity- Encouraged to loose weight. Goal set to loose weight at 1-1.5 Lbs/week- Avoid starchy and fatty food- Encouraged use of green vegetables and fruits Alcoholism 8132648 F10.2 0 Uses home continuous positive airway pressure ventilation supply 1069603962 103 Z99.11 uses cpap for RALF Essential hypertension 44113605 I10 Fatigue 61154630 R53.83 Hyperlipidemia 97766499 E78.5 Screening for malignant neoplasm of breast 079740720 Z12.39 Screening for malignant neoplasm of cervix 131613713 Z12.4 Hepatitis C screening 41 0207515 Z11.59 Prediabetes 032897092 R7 3.03 Mixed anxi ety and depressive disorder 274455753 F41.8 Denies homicidal or suicidal ideation Plans to seek EAP Skin tag 457438161 L91.8 patient notes discomfort , referral provided Swelling o f ankle joint 603829333 M25.471 Non tender could be cysts on lateral malleolus, will have podiatry eval. Morbid obesity 064533949 E66.01 Moderate m ajor depression, single episode 94313658 F32.1 Denies homicidal or suiscial ideation [id number] Denis Pro MD Main Office [address] [facility] [address] [facility] [place] [address] 02/10/2022 14:43:55 02/10/2022 15:38:09 Cervical disc disorder 460597109 M50.90 She has been on tramadol for at least 8 years. She is hoping to wean from this at sometime in the future but is currently feeling overwhelme d at dealing with her medical issues. Bilateral arthritis of knees 5694933829 309998 M13.861 M13.862 Recently received steroid injection which give some help. [id number] Kaye Zimmerman MD Main Office [address] [facility] [address] [facility] [place] [address] 2022 07:58:48 03/19/2022 08:26:21 Cervical disc disorder 989844883 M50.90 She has been on tramadol for at least 8 years. She is hoping to wean from this at sometime in the future but is currently feeling overwhelme d at dealing with medical issues.Rem inded to get labs aware if labs are not done she will not get next fill Reviewed the risks and benefits of long-term use of opiate for chronic, non-malign ant pain. Reviewed with patient that group home opiate use is appropriat e treatment based on current medical condition and patient states that continued benefit is noted. Contract for opiate use is in place. Discussed side effects of opiates. Caution driving, reviewed fall risk, and treatment for constipati on, as well as option to fill in lesser amounts. A Prescripti on for an Opioid has been given to the patient and I have reviewed the patients profile in [facility] Partial fill of RX is possible. Bilateral arthritis of knees 4610686227 381944 M13.861 M13.862 Recently received steroid injection which give some help.Had synvisc injection. Shoulder joint pain 2679 15639 M25.519 Plans to cortisone injection as well from [facility]. Gastroesop hageal reflux disease 134518060 K21.9 controlled on current medication s, requesting refills. [id number] Kaye Zimmerman MD Main Office [address] [facility] [address] [place] [address] 04/27/2022 13:44:39 04/27/2022 14:47:29 Cervical disc disorder 625962570 M50.90 She has been on tramadol for at least 8 years. She is hoping to wean from this at sometime in the future but is currently feeling overwhelme d at dealing with medical issues.Rem inded to get labs aware if labs are not done she will not get next fill Reviewed the risks and benefits of long-term use of opiate for chronic, non-malign ant pain. Reviewed with patient that termination clerk opiate use is appropriat e treatment based on current medical condition and patient states that continued benefit is noted. Contract for opiate use is in place. Discussed side effects of opiates. Caution driving, reviewed fall risk, and treatment for constipati on, as well as option to fill in lesser amounts. A Prescripti on for an Opioid has been given to the patient and I have reviewed the patients profile in [facility] Partial fill of RX is possible. Chronic pain syndrome 37 6541860 G89.4 [id number] Kaye Zimmerman MD Main Office [address] [facility] [address] [place] [address] 03/08/2023 13:49:34 03/08/2023 14:45:21 Adult health examination 459958365 Z00.00 Patient was counseled on healthy diet, exercise and nutrition due to Body mass index is 44.8 kg/m . Last Colonoscop y:Date: 02/13/19Res ult: no polypsPlan : per GI repeat 5yrs Last Mammogram: Date: 01/28/22Res ult: Birad-2Pla n: notes had done with tool and machine maintainer recently. Will try to get records. Last Pap smearDate: Result:Moy n: notes had recent will get records Bone density scanDate:R esult:Plan : will consider earlier if still drinking Vaccines:T d:07/29/18 Zoster rec: not [id number]: not dueInfluen za: yearly flu shot encouraged .Covid: 05/11/21, 06/05/21, bivalent encouraged . Routine labs today Immunizati on status reviewed. Will screen based on risk factors. Regular dental and ophtho care advised as well as seat belt and sunscreen use. Distracted driving discussed. Medication reconciled . Alcoholism 2517012 F10.2 0 Moderate m ajor depression, single episode 76148171 F32.1 Denies homicidal or suicidal Ideation Mixed anxi ety and depressive disorder 237414626 F41.8 Denies homicidal or suicidal Ideation Plans to seek EAP Uses home continuous positive airway pressure ventilation supply 7252817371 103 Z99.11 uses cpap for RALF Essential hypertension 64612668 I10 Fatigue 09982398 R53.83 Hyperlipidemia 03728978 E78.5 Prediabetes 326596840 R7 3.03 Morbid obesity 012037608 E66.01 Body mass index 40+ - severely obese 472571964 Z68.41 - Diet and exercise discussed- Patient made aware of risks of obesity- Encouraged to loose weight. Goal set to loose weight at 1-1.5 Lbs/week- Avoid starchy and fatty food- Encouraged use of green vegetables and fruits Cervical d isc disorder 895255458 M50.90 She has been on tramadol for at least 9 years. She is hoping to wean from this at sometime in the future but is currently feeling overwhelme d at dealing with medical issues.Rem inded to get labs aware if labs are not done she will not get next fill Reviewed the risks and benefits of long-term use of opiate for chronic, non-malign ant pain. Reviewed with patient that group home opiate use is appropriat e treatment based on current medical condition and patient states that continued benefit is noted. Contract for opiate use is in place. Discussed side effects of opiates. Caution driving, reviewed fall risk, and treatment for constipati on, as well as option to fill in lesser amounts. A Prescripti on for an Opioid has been given to the patient and I have reviewed the patients profile in [facility] Partial fill of RX is possible. Chronic pain syndrome 37 8856293 G89.4 Obstructiv e sleep apnea syndrome 67438002 G47.33 Gastro-eso phageal reflux disease with esophagitis 941543981 K21.00 Tobacco de pendence syndrome 86765522 F17.290 5-6 cig/ day started age 15, stop for 10yrs, ~ 25 yrs. previous smoking 0.5 pack.Optio ns for cessation and risks of smoking discussed. Want to try bupropion advised no etoh.No hx of seizure, aware to get labs after starting meds, follow up for cessation over tele 3 weeks. Lipoma of skin 170344340 D17.30 Rib pain 294634543 R07.8 1 [id number] Kaye Zimmerman MD Main Office [address] [facility] [address] [place] [address] 06/16/2023 13:40:39 06/16/2023 14:46:48 Scapulalgia 73398696 M25.519 She describes this as a spasm-like discomfort which is aching and thus I will give her some tizanidine . The risk of sedation was advised that she is also taking Ultracet and now duloxetine she is aware to space these medication s out at least 2 hours. She declines physical therapy at this time. I did give her some exercises and I will also refer to physiatry for assistance due to multiple complaints as I also feel there is some possible shoulder involvemen t anteriorly where bursitis or bicpes tendonitis could be a differenti al. Anterior c hest wall pain 563177296 R07.89 CXR reassuring will get ecg for completene ss which was reassuring . Dyspnea 615857559 R06.00 Wells PE score: 0I do not see any signs of heart failure on PE but she is concerned for this thus I will get a proBNP.She was a smoker thus will get PFT. I will start albuterol to see if her sx improve. No wheezing or decreased air entry noted on exam and she is speaking in full sentences. Anxiety state 784861986 F41.1 With pain, anxiety with her health and sleep issues, we will do a trial of low dose duloxetine . I will do a low dose first as she is on various sedating medication s, she understand s this and is aware to see how she feels before operating any motor vehicle. [id number] Kaye Zimmerman MD Main Office [address] [facility] [address] 07/28/2023 15:09:56 07/28/2023 15:58:15 Scapulalgia 82576856 M25.512 Will do prn, also advised to establish with PMR Dyspnea 591719666 R06.00 PFT with methacholi ne consistent with asthma will cont, with albuterol for now. Follow up 1 month. Anxiety state 488385359 F41.1 Notes duloxetine helped will continue 20mg will continue advised to get LFT and labs. Cervical d isc disorder 828474142 M50.90 She has been on tramadol for at least ~10 years. She is hoping to wean from this at sometime in the future but is currently feeling overwhelme d at dealing with medical issues. She tried Ultram but had upset stomach and can only tolerated tramadol. I will fill tramadol in hopes insurance covers this as other control substance can result in more addictive behaviours . Reviewed the risks and benefits of long-term use of opiate for chronic, non-malign ant pain. Reviewed with patient that group home opiate use is appropriat e treatment based on current medical condition and patient states that continued benefit is noted. Contract for opiate use is in place. Discussed side effects of opiates. Caution driving, reviewed fall risk, and treatment for constipati on, as well as option to fill in lesser amounts. A Prescripti on for an Opioid has been given to the patient and I have reviewed the patients profile in [facility] Partial fill of RX is possible. [id number] Iggy Rubio MD [facility] [address] [facility] [address] 11/01/2023 10:34:25 11/02/2023 11:37:44 Dysuria 10922398 R30.0 Will cover empiricall y with Bactrim, pt advised to submit urine sample prior starting abx. Will modify regimen depending on culture result. Call with any problems. [id number] Kaye Zimmerman MD Main Office [address] [address] 03/27/2024 13:14:49 03/27/2024 15:15:34 Dysuria 57026040 R30.0 SYMPTOMS:b urning with urination? yesfrequen cy? yeshematur ia? yeslower abdominal pain? yessymptom s similar to previous UTI? yes POSSIBLE CONTRAINDI CATIONS TO TELEPHONE TREATMENT: > 65 years of age? nofevers? norecent UTI (within 1 month)? nonew low back pain? nonausea or vomiting? no ? nohistory of interstiti al cystitis? no PROVIDER ACTION: Reviewed nursing notes? yesRecomme nded action needs appointmen t Antibiotic treatment NA Will start bactrim. Send out for culture, repeat urin in 2 weeks. Cervical d isc disorder 969457732 M50.90 Dose reduce has had some help with meloxicam. Allergic rhinitis 947172 04 J30.9 Will start drop. Also advised to follow optho. [id number] Denis Pro MD Main Office [address] [place] [address] 05/30/2024 10:27:09 05/30/2024 12:13:07 Otitis externa of right ear [id number] 460790 H60.91 will tx for OE and OM based on exam findings, drops TID x 7-10 days avoid getting water in ears.If any severe pain, discharge, worsening bleeding please go to ED. Acute righ t otitis media 529253709 H66.91 right OM, cefdinir as directed x 7 days, eat prior to taking med, eat yogurt or take a probiotic. [id number] Kaye Zimmerman MD Main Office [address] [place] [address] 06/30/2024 15:17:40 06/30/2024 16:20:02 Adult health examination 932457906 Z00.00 Patient was counseled on healthy diet, exercise and nutrition due to Body mass index is 45 kg/m . Last Colonoscop y:Date: 02/13/19Res ult: no polypsPlan : due, referral placed Last Mammogram: Date: 03/01/23Res ult: Birad-2Pla n: script given Last Pap smearDate: 02/10/22Res ult: ASCUS, hpv negPlan: per asccp screen 3 yrs Bone density scanDate:R esult:Plan : will consider earlier if still drinking Vaccines:T d:07/29/18 Zoster rec: not [id number]: will advise if still drinking in excess next visit.Infl uenza: Declined. Risk discussed. Covid: encouraged updated vaccine Routine labs today Immunizati on status reviewed. Will screen based on risk factors. Regular dental and ophtho care advised as well as seat belt and sunscreen use. Distracted driving discussed. Medication reconciled . Alcoholism 8365457 F10.2 0 Reviewed etoh consumptio ns amount and risks. Moderate m ajor depression, single episode 88877064 F32.1 Denies homicidal or suicidal Ideation Mixed anxi ety and depressive disorder 836850107 F41.8 Denies homicidal or suicidal Ideation. Uses home continuous positive airway pressure ventilation supply [id number] 103 Z99.11 uses cpap for RALF Essential hypertension 91342822 I10 Fatigue 56860305 R53.83 Hyperlipidemia 38717991 E78.5 Prediabetes 665783434 R7 3.03 Morbid obesity 974863328 E66.01 Body mass index 40+ - severely obese 503934547 Z68.41 - Diet and exercise discussed- Patient made aware of risks of obesity- Encouraged to loose weight. Goal set to loose weight at 1-1.5 Lbs/week- Avoid starchy and fatty food- Encouraged use of green vegetables and fruits Obstructiv e sleep apnea syndrome 51344169 G47.33 Gastro-eso phageal reflux disease with esophagitis 480329758 K21.00 stable with ppi Screening for malignant neoplasm of breast 617435090 Z12.39 Influenza vaccination declined 194457358 Z28.21 Neuropathy 732188414 G62 .9 note sx will get labs work follow up 1 week. Easy bruising 308543104 R58 [id number] Kaye Zimmerman MD Main Office [address] [place] [address] 07/07/2024 13:31:13 07/07/2024 14:32:49 Urine microscopy: crystals - finding 154838715 R82.[address] as to see if she has renal stones given crystal finding in urine, will also allow to better eval GI symptoms.H ydration enforced. Cervical d isc disorder 061328043 M50.90 Dose reduce has had some help with meloxicam. Neuropathy workup pending as she has tingling b/l extremity. I did a modified spurling test it was neg.Will start with xray.No loss of dexterity. Pain in left arm 0927948 00 M79.602 Will ensure not cardiac first as exam not revealing for MSK. Chest wall pain 48416299 6 R07.89 ECG done reassuring .Will get xray.Her sx do appearing concerning for possible cardiac pathology, will get pharm stress. She is unable to exercise given ongoing issues with knees.ED precaution s discussed. Will follow up after stress test. Abdominal pain 18149776 R10.9 Lab reassuring thus far. [id number] Kaye Zimmerman MD Main Office [address] [place] [address] 10/30/2024 14:34:29 10/30/2024 15:43:29 Bilateral arthritis of knees 5420340258 284376 M13.861 M13.862 Advised to follow ortho for pain, for break through I have her percocet, she is aware not to take with tramadol to the risk of sedation, she has not had any seizures while on tramadol. Morbid obesity 792824065 E66.01 Body mass index 40+ - severely obese 330528950 E66.01 Z68.41 Osteoarthr itis of knee 433527251 M17.9 Vasovagal syncope 348468 005 R55 I suspect she had a vasovagal episode from pain, if sx persist we will have to persue more agressive workup and she agrees with this plan. Adrenal adenoma 79442201 8 D35.00 Will get hormonal workup after knee care done at this time this is her priority. Her imaging is stable and unchanged. [id number] Kaye Zimmerman MD Main Office [address] [place] [address] 03/20/2025 13:17:55 03/20/2025 14:33:35 Dysuria 52826209 R30.0 SYMPTOMS:b urning with urination? yesfrequen cy? yeshematur ia? nolower abdominal pain? yessymptom s similar to previous UTI? yes POSSIBLE CONTRAINDI CATIONS TO TELEPHONE TREATMENT: > 65 years of age? nofevers? norecent UTI (within 1 month)? nonew low back pain? nonausea or vomiting? no ? nohistory of interstiti al cystitis? no PROVIDER ACTION: Reviewed nursing notes? yesRecomme nded action needs appointmen t Antibiotic treatment Bactrim DS x 3 days Will start bactrim. Send out for culture.Hy dration enforced.F eminine hygiene discussed. Denies constipati on. Venereal d isease screening 226349649 Z20.2 Z11.3 Z72.89 Wants to screen STI due to new partner. [id number] Denis Pro MD Main Office [address] [place] [address] 04/07/2025 10:57:07 04/07/2025 11:26:58 Pruritic dermatitis 1988136814 L30.8 564 This appears to be a contact dermatitis but she has not been outside since her surgery. Possible ID reaction after her knee surgery. Doubt infection since she is already on bactrim. [id number] Kaye Zimmerman MD Main Office [address] [address] 07/02/2025 08:55:00 07/02/2025 09:58:44 Adult health examination 690967823 Z00.00 Patient was counseled on healthy diet, exercise and nutrition due to Body mass index is 40.9 kg/m . Last Colonoscop y:Date: 03/03/24Res ult: no polypsPlan : recall 5yr per GI Last Mammogram: Date: 03/01/23Res ult: Birad-2Pla n: due, script given Last Pap smearDate: 02/10/22Res ult: ASCUS, hpv negPlan: Notes more recent pap but was called back due to unsatisfac tory pap, she is going ot reach out for apt. Bone density scanDate:R esult:Plan : will consider earlier if still drinking Vaccines:T d:07/29/18 Zoster rec: script given.PCV2 0: script given.Infl uenza: Declined. Risk discussed. Covid: encouraged updated vaccine Routine labs today Immunizati on status reviewed. Will screen based on risk factors. Regular dental and ophtho care advised as well as seat belt and sunscreen use. Distracted driving discussed. Medication reconciled . Alcoholism 8989616 F10.2 0 Reviewed etoh consumptio ns amount and risks. Moderate m ajor depression, single episode 73688716 F32.1 Denies homicidal or suicidal Ideation Mixed anxi ety and depressive disorder 140303688 F41.8 Denies homicidal or suicidal Ideation. Obstructiv e sleep apnea syndrome 19403520 G47.33 Uses home continuous positive airway pressure ventilation supply 1809273252 103 Z99.11 uses cpap for RALF Essential hypertension 05051181 I10 Fatigue 24701425 R53.83 Hyperlipidemia 35487162 E78.5 Prediabetes 643281416 R7 3.03 Morbid obesity 865463554 E66.01 Body mass index 40+ - severely obese 144680829 Z68.41 - Diet and exercise discussed- Patient made aware of risks of obesity- Encouraged to loose weight. Goal set to loose weight at 1-1.5 Lbs/week- Avoid starchy and fatty food- Encouraged use of green vegetables and fruits Gastro-eso phageal reflux disease with esophagitis 917167158 K21.00 stable with ppi Screening for malignant neoplasm of breast 589852660 Z12.39 Varicella vaccination 68 071161 Z23 Administra tion of pneumococcal vaccine 45793650 Z23 Cervical d isc disorder 108573190 M50.90 Dose reduce has had some help with meloxicam. Neuropathy workup pending as she has tingling b/l extremity. I did a modified spurling test it was neg.Will start with xray.No loss of dexterity. Venereal d isease screening 692374366 Z20.2 Z11.3 Z72.89 Wants to screen STI due to new partner. Anxiety state 595153903 F41.1 Notes duloxetine helped will continue 20mg encouraged psychother apy. [id number] Kaye Zimmerman MD Main Office [address] [facility] [address] [facility] [place] [address] 08/14/2025 15:10:22 08/14/2025 15:52:51 Neck pain 71191928 M54.2 Numbness of hand 0945078 04 R20.0 244235 Cervical d isc disorder 394394821 M50.90 Influenza vaccination declined 823414596 Z28.21 27682459 Adrenal adenoma 74554930 8 D35.00 Health Concerns Section Related Observation LastModified by Organization Detai ls LastModified Time None Recorded Concern Status LastModified by Organization Details LastModified Time None Recorded Advance Directives Directive N: Payers Insurance Date Sequence Insurance Name Policy Number Policy Turner Covered Member ID Turner Member ID Guarantor Name 08/14/2025 1 [facility] [place] [id number] Rosette Boateng [id number] Rosette Boateng 08/03/2019 1 [facility] [place] [id number] Rosette Boateng [id number] Rosette Boateng 10/15/2021 2 [place] [facility] Rosette Boateng [id number] Rosette Boateng 06/28/2015 1 [place] [id number] Rosette I Boateng [id number] Rosette Boateng 06/16/2023 1 [facility] [place] [facility] [place] [facility] (HMO) [id number] Rosette I Boateng [id number] Rosette Boateng 10/15/2021 1 [place] [facility] Rosette I Boateng [id number] Rosette Boateng Notes Date Note Type Note Provider Name and Address Organization Details Recorded Time 5 text/html Musculoskeletal PainReported by PatientHPIFor quality, patient reportsaching. For severity, patient reportsworsening. For associated symptoms, patient reportsweak limbsbut reportsno fever,no tingling, andon incontinence. For location, patient reportsbilateral knee (r>l). For duration, patient reportspresent for >12 months. For timing, patient reportsconstant. For context, patient reportsoveruse. ObesityReported by PatientHPIFor context, patient reportsoral steroidsbut reportsno inhaled steroids. For associated symptoms, patient reportschronic illness (severe oa of knee.)but reportsno depression. For co-morbidities, patient reportsoverweight/obeseand hypertension(severe oa of knee). For lifestyle changes, patient reportsconstitutional symptoms related to diagnosis,not losing weight, andnot exercising morebut reportsno changes in living situationandmotivated to continue lifestyle changes. For physical activity, patient reportsno exercise (poor ambulation due to knees.). For diagnosis summary, patient reportsage at start of weight gain ___,diagnosis: obesity, andadditional diagnosis: hypertension(hld). For nutrition, patient reportseats mostly healthy diet,eats low carbohydrate diet,counting and restricting calories,restricting concentrated sugars, andwhole grain foods. For medication education, patient reportsunderstands potential side effects,understands administration, andunderstands role of diet as primary therapy. The patient presents today to discuss ongoing severe osteoarthritis (OA) of both knees, with the right knee being worse than the left. She continues to struggle with her weight and has been using the pool to help manage her weight and joint pain; however, recent events have made this more challenging. Last Wednesday, after swimming, she initially felt fine but experienced her legs giving out. She struggled to get out of a chair due to severe pain and reports she may have momentarily lost consciousness from the intensity of the pain. Emergency Medical Services (EMS) were called, performed an assessment, and found no alarming findings, so she did not go to the hospital. Since then, she has not had similar episodes. She has been seen by orthopedics and has plans for a knee replacement. Today, she was ambulating with a walker. She recently underwent cardiac evaluation, including an EKG and a stress test, both of which were reassuring. She states that orthopedics prescribed ibuprofen and provided a script for a walker, but her pain persists. We also discussed how her weight is contributing to many of her symptoms. She continues to struggle with weight loss despite her efforts to eat well and exercise as much as her knee issues allow. Kaye Zimmerman MD [address] [address], [place], [address], [facility] 10/30/2024 17:58:10 5 text/html DysuriaReported by PatientHPIFor quality, patient reportsburningandpressure. For severity, patient reportsworsening. For timing, patient reportsworse. For context, patient reportsno prior history of stdsandno known exposure to std. For associated symptoms, patient reportsno fever,no blisters on genitals,no rash on genitals,no hesitancy,no blood in the urine,normal urine stream, andno flank pain. For duration, (3 days). Kaye Zimmerman MD [address] [address], [place], [address], [facility] 03/20/2025 14:09:51 5 text/html She had left knee surgery (TKR) 03/30/25 (8 days ago). She is currently taking bactrim post-op. Three days ago she developed a vesicular rash that has been weeping clear fluid at her upper left thigh. It is not painful but mildly itchy. She put some OTC hydrocortisone cream on it yesterday w/o much change. She has not been outside and has not had any contact since her surgery. Denis Pro MD [address] [address], [place], [address], [facility] 04/07/2025 12:13:50 5 text/html Generic HPI TemplateReported by Patient Here for PE visit. Reviewed chronic medications and medical problems. Discussed screening guidelines as well as goals for fitness and weight management. Recent b/l knee replacement, recovering well.As for alcohol use she has cut down glass of wine every other week.Last Cig was 2022, 1/4 pack for since age 12. Kaye Zimmerman MD [address] [address], [place], [address], [facility] 07/02/2025 09:50:15 5 text/html Musculoskeletal PainReported by PatientHPIFor quality, patient reportssharpandtingling. For severity, patient reportsworsening. For associated symptoms, patient reportstinglingbut reportsno fever,no weak limbs,no numbness of the legs/feet, andon incontinence. For location, patient reportsbilateral neck. For duration, patient reportspresent <1 month. For timing, patient reportsconstant(arm goes numb.). For context, patient reportsprevious surgery(hx of surgery in the neck in the past.).The patient presents with persistent neck and shoulder pain accompanied by numbness and burning sensations in the hands. She has a history of neck surgery approximately 17 years ago and reports progressive worsening of symptoms over the past three weeks. She describes sharp pain in the middle of her back radiating to the neck, along with numbness and burning in both hands, often waking her at night. She also notes difficulty gripping and holding objects due to loss of dexterity, leading to frequent dropping of items. Heating pads provide some temporary relief. Symptoms have worsened recently, particularly at night. She denies bowel or bladder incontinence, gait changes, lower extremity weakness, or fever. She previously tried gabapentin but was unable to tolerate it due to side effects. Kaye Zimmerman MD [address] [address], [place], [address], [facility] 08/14/2025 17:18:46 OBGyn Episode No OBEpisode recorded.
--- OUTSIDE RECORDS SUMMARY | 2025-09-05 15:03 | XMS_ITS | Clinical Summary ---
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 Not on lisbet e 04/08/2025 Are you concerned about learning? Not on file 04/08/2025 No 04/08/2025 No 04/08/2025 Digital Access Answer Date Recorded No 04/08/2025 No 04/08/2025 Reliable internet access at home? Not on file 04/08/2025 Device with a working camera? Not on file Intimate Partner Violence Answer Date R ecorded Are you denied basic needs s uch as food, clothing, or medical care? No 04/08/2025 In the past 12 months have y ou been in a relationship with a person who hurts, threatens, or tries to control you? No 04/08/2025 Are you denied basic needs s uch as food, clothing, or medical care? No 04/08/2025 In the past 12 months have y ou been in a relationship with a person who hurts, threatens, or tries to control you? No 04/08/2025 Comments Unknown Sex and Gender Information Value Date Recorded Sex Assigned at Not on file Legal Sex Female 9:29 PM EDT Gender Identity Not on file Sexual Orientation Not on file Last Filed Vital Signs Vital Sign Reading Time Taken Comments Blood Pressure 132/100 04/08/2025 6:30 PM EDT Pulse 78 04/08/2025 6:30 PM EDT Temperature 36.1 C (97 F) 04/08/2025 6:30 PM EDT Respiratory Rate 16 04/08/2025 6:30 PM EDT Oxygen Saturation 96% 04/08/2025 6:30 PM EDT Inhaled Oxygen Concentration - - Weight 112 kg (247 lb) 04/08/2025 2:20 PM EDT Height 160 cm (5' 3 ) 04/08/2025 2:20 PM EDT Body Mass Index 43.75 04/08/2025 2:20 PM EDT Plan of Treatment Health Maintenance Due Date Last Done Comments Adult Td,Tdap Booster 1975 LIPID PANEL 1975 DEPRESSION SCREENING 1987 SMOKING Hx and SMOKELESS TOBACCO SCREENING 1988 HEPATITIS C SCREENING 1993 HIV ONE-TIME SCREENING (18-6 5 YEARS) 1993 PAP SMEAR 1996 COLOGUARD 2020 COLONOSCOPY 2020 COLORECTAL CANCER SCREENING 2020 FIT TEST 2020 FOBT 2020 SIGMOIDOSCOPY 2020 VIRTUAL COLONOSCOPY 2020 MAMMOGRAM 03/01/2025 03/01/2023, 11/08/2017 PNEUMOCOCCAL VACCINES (50+ years) (1 of 1 - PCV) 2025 RSV VACCINE (1 - Risk 50-74 years 1-dose series) 2025 ZOSTER VACCINES (1 of 2) 2025 INFLUENZA VACCINE (#1) 2025 COVID-19 VACCINE (1 - 2024-2 6 season) 2025 SCREENING FOR DIABETES 04/08/2028 04/08/2025 HEPATITIS A VACCINES Aged Out No long er eligible based on patient's age to complete this topic HIB VACCINES Aged Out No longer eligi ble based on patient's age to complete this topic MENINGOCOCCAL VACCINES (ACWY) Aged Out No longer eligible based on patient's age to complete this topic MENINGOCOCCAL VACCINES (B) Aged Out N o longer eligible based on patient's age to complete this topic Medical Devices Not on file Insurance HMO [address] [place], [place] [id number] O 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 It is not the complete legal health record.[facility]
== END 2025-09-05 07:14 | disposition home or self-care (01) ==
LOC: HO.MRI 07:13
PROVIDERS: PCP Family Medicine; Visit Provider Family Medicine
DX: M50.90 Cervical disc disorder, unspecified, unspecified cervical region (principal)
CPT/HCPCS: 72141

== ENCOUNTER → 2025-09-05 07:16 | Outpatient (BNV) | payer OTHER, SELFPAY | PROVIDERS: PCP Family Medicine; Visit Provider Radiology Diagnostic Radiology | DX: M47.812 Spondylosis without myelopathy or radiculopathy, cervical region (principal); M99.61 Osseous and subluxation stenosis of intervertebral foramina of cervical region | CPT/HCPCS: 72141 ==

== ENCOUNTER 2025-09-11 09:12 | Outpatient (REF) | payer OTHER, SELFPAY ==
--- NOTE | 2025-09-11 09:15 | EMG_ITS ---
Chief complaint: pain, numbness and tingling in both hands Referred by: Kenneth Mayfield MD Procedure done: NCS and EMG of bilateral upper extremities Bilateral median and ulnar motor studies were performed, median and ulnar mixed sensory studies were performed and radial sensory studies were performed. EMG was performed. Findings: Bilateral median motor distal latencies were moderately prolonged. Similar pattern was noted with median mixed distal latencies with fkljdopx-ms-nbdewv prolongation on the right with moderate slowing of conduction velocity. Needle examination revealed long duration polyphasic tall potentials in left mid to lower paraspinal. One to 2+ fibs and positive sharp waves were noted in left triceps and biceps with long duration motor unit potentials. Impression: 1. Moderate right and qxqz-al-tiudoweb left median neuropathy across carpal tunnel 2. Acute left mid cervical probably C6 radiculopathy [place] [address] x2 MTDD
--- OUTSIDE RECORDS SUMMARY | 2025-09-11 10:11 | XMS_ITS | Clinical Summary ---
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 It is not the complete legal health record.[facility]
== END 2025-09-11 09:13 | disposition home or self-care (01) ==
LOC: HO.NEURO 09:12
PROVIDERS: PCP Family Medicine; Visit Provider Family Medicine
DX: R20.0 Anesthesia of skin (principal); R20.2 Paresthesia of skin; M79.641 Pain in right hand; M79.642 Pain in left hand
CPT/HCPCS: 95886; 95911

== ENCOUNTER → 2025-09-11 09:15 | Outpatient (BNV) | payer OTHER, SELFPAY | PROVIDERS: PCP Family Medicine; Visit Provider Psychiatry & Neurology Neurology | DX: G56.03 Carpal tunnel syndrome, bilateral upper limbs (principal) | CPT/HCPCS: 95886; 95911 ==